=== PATIENT | male | born 1985 | race Caucasian/White ===

== ENCOUNTER 2018-01-11 12:57 | Inpatient (IN) | payer OTHER ==
[2018-01-11] MEDS: traMADol 50 MG TAB PO PRN (15:15)
[2018-01-11] MEDS ORDERED: BISACODYL 10 MG SUPP PR PRN (15:43)
[2018-01-11] MEDS ORDERED: PNEUMOCOCCAL 0.5ML VACCINE VIAL IM ONE (16:35)
--- NOTE | 2018-01-11 17:29 | GHP ---
POSTADMISSION PHYSICIAN EVALUATION AND REHABILITATION TREATMENT PLAN DATE OF ADMISSION: 01/11/2018 DATE OF EVALUATION: 01/11/2018. TIME OF EVALUATION: 1520. REFERRING FACILITY: [facility]. IMPAIRMENT GROUP: 8.3. DATE OF ONSET: 12/21/2017. REFERRING PHYSICIAN: Dr. Brooks. CONSULTING PHYSICIANS: He was seen by the pulmonary and critical care team, and the orthopedic spine service. REHABLITATION DIAGNOSIS: Debility status post pelvic fractures and open reduction, internal fixation. ETIOLOGIC DIAGNOSIS: Pelvic fracture. DATE OF SURGERY: 12/29/2017. HISTORY OF PRESENT ILLNESS: This patient is a 32-year-old man who was brought to [facility] due to mental status changes. He reports he was found unconscious on his couch by his roommates. A day or two previously he reports that he had been running to catch a bus and tripped and fell and developed pain in his left hip and elsewhere on his left side. He was, however , able to go home and he went to work the next day. He had a subsequent fall at home. He had been drinking heavily and he is habitually a heavy drinker. He was hospitalized and treated for alcohol withdrawal with withdrawal seizures , delirium and encephalopathy on 12/21/2017. Several days later on 12/25/2017, bruising was noted on the left hip. An x-ray was done which showed a complex left acetabular fracture. He was transferred to [facility] on . En route to [facility], he vomited and aspirated. He had respiratory failure and required intubation. He had septic shock. Once he was medically stable, he underwent ORIF of the left acetabulum and sacroiliac screw on 12/29/2017. He subsequently had ORIF of the left acetabular fracture on , and a lumbopelvic fixation done on 01/04/2018. He was also found to have an L5 compression fracture. He had constipation and possible ileus versus small bowel obstruction, which eventually resolved with laxatives. Once he had loose stools, he was tested for Clostridium difficile colitis and was negative for that. Other hospital complications included, acute kidney injury, anemia, hyponatremia, hypokalemia, and sinus tachycardia. He was stabilized from an orthopedic point of view and medically stabilized, participating in therapies and ready for inpatient rehabilitation. LABORATORY DATA: Most recently on 01/10/2018: CBC showed anemia with a hemoglobin of 7.6 and hematocrit of 24.7. There was a very high platelet count at 818, and on 01/10/2018, a basic metabolic profile was overall within normal limits. The previous day liver function tests showed an elevated alkaline phosphatase at 337. Otherwise it was normal with no transaminase elevations and normal bilirubin. Magnesium was normal at 1.7, phosphorus was normal at 3.0. TSH on 12/21/2017, was normal at 1.13. He had an ultrasound study on to rule out DVTs bilaterally to the lower extremities, and these were negative. There was an echocardiogram done on 12/29/2017, which showed normal right and left ventricular size, thickness and function. Ejection fraction was estimated at 60%-65%. There were no valvular abnormalities. Right ventricular systolic pressure was somewhat elevated at 29 mmHg. PRECAUTIONS: He is a fall risk. He has orthopedic weightbearing precautions, nonweightbearing on the left lower extremity, full weightbearing on the right lower extremity, but flat foot, no heel strike and no toe off. ACTIVE COMORBIDITIES: He has no active tier 1, tier 2, or tier 3 comorbidities. PAST MEDICAL HISTORY: 1. Alcohol abuse and dependence. 2. Tobacco dependence syndrome. PAST SURGICAL HISTORY: He has not had previous surgeries. PREHOSPITAL MEDICATIONS: He was not taking any medications. ADMISSION MEDICATIONS: 1. Acetaminophen 650 mg p.o. q.4 hours p.r.n. 2. Aspirin 81 mg p.o. daily for thrombocytosis. 3. Enoxaparin 30 mg subcutaneous twice daily. 4. Methocarbamol 750 mg p.o. q.8 hours p.r.n. 5. Metoprolol 12.5 mg p.o. twice daily. 6. Nicotine patch 7 mg daily. 7. Oxycodone 5 mg p.o. q.4 hours p.r.n. 8. Polyethylene glycol 17 g p.o. daily. 9. Senna/docusate 1 p.o. twice daily. 10. Tramadol 50 mg p.o. q.6 hours p.r.n. ALLERGIES: No known drug allergies. SOCIAL HISTORY: He lives with 2 roommates. 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 He is a smoker and has been a heavy alcohol user. He reports his father lives out of town, but came to [place] to help out while the patient is ill. He is not sure that his father is going to stay. He also reports that bedrooms and bathrooms are up a flight of steps in his apartment and he is not sure he is going to return to that same location. FAMILY HISTORY: Noncontributory. REVIEW OF SYSTEMS: He reports considerable pain in his left side and at his incisions. He reports weakness in the left leg, particularly in hip flexion, and cannot lift the leg off the bed. He is not limited by pain. His bowels have been moving. He has a normal appetite. He denies fevers, chills, cough or dyspnea. He says he gets "charley horses" in his calves, which are relieved with methocarbamol, and he feels that the combination of acetaminophen, oxycodone, and methocarbamol has been effective for pain control. Otherwise, a 10-point review of systems is negative. PHYSICAL EXAMINATION: VITAL SIGNS: Vitals are not yet available in the chart. GENERAL: This is a well-nourished, well-developed man, in hospital scrubs and a hospital gown with a very long cordero, cooperative and in no acute distress. HEENT: Extraocular movements are intact. Pupils are equal, round, reactive to light. Mucous membranes are moist. Dentition is in good condition. He has a mildly crowded airway, Mallampati class 2. NECK: Supple. HEART: Regular rate and rhythm. He is mildly tachycardic. There are no murmurs, rubs, or gallops. LUNGS: Clear to auscultation bilaterally. ABDOMEN : Soft, nontender, nondistended with normoactive bowel sounds and no hepatosplenomegaly. EXTREMITIES: No cyanosis or clubbing. There is 1+ edema on the left pretibial, and trace edema on the right pretibial. He has mild calf tenderness bilaterally, greater on the left than the right. NEUROLOGIC: Alert and oriented x3. Cranial nerves 2-12 are grossly intact. He has less than antigravity strength at the left hip flexor. Left quadriceps is 5/5, left foot plantar and dorsiflexion are 5/5, left hamstring is 4/5. Strength is normal on the right. Sensation is intact to light touch, though he reports paresthesias bilaterally in his toes. SKIN: Incisions were inspected in the anterior pelvis and left hip, they have shaji present. There is very mild erythema and slight serous drainage at the right side of the pelvic incision and the hip incision was clean, dry and intact. CURRENT LEVEL OF FUNCTION: Per the preadmission screen, he was on a regular diet. Regarding dressing, he was dependent to don his socks. Toilet transfer was done with contact guard assist and he was dependent for clothing management. Regarding bowels, he had loose stools, which resolved. Bed mobility required contact guard to moderate assist for log-rolling and moderate assist for lower extremities by a swivel technique with voice cues to ensure compliance. Transferring [id number] was done with moderate assist and voice cues for hand placement. Balance required contact guard for sitting. Endurance was good. He was able to ambulate 7 feet and 5 feet with contact guard assist and front-wheeled walker. He fatigued easily and was noted to be tremulous. Communication was considered normal. Regarding cognition, he was noted to have periods of confusion, anxiety and impulsivity. He required assistance to identify cognitive errors. He was able to recall 2/3 spinal precautions. On today's exam, he appears to have improved in terms of bed mobility and was able to arise to seated without any assistance. Otherwise, there were no significant differences from the pre-admission screen. IMPRESSION: This is a 32-year-old man who had a fall and suffered a complex left acetabular fracture and sacral fractures, as well as an L5 compression fracture. Diagnosis was delayed due to delirium consistent with alcohol withdrawal. He was transferred from [facility] where he was initially hospitalized to [facility] for definitive surgery. He underwent open reduction, internal fixation of the left acetabulum and sacral screws. He had a subsequent surgery in which he had lumbopelvic fixation. Hospital course was complicated by continued delirium and by an ileus , likely due to pain medications, which eventually remitted; with diarrhea, which was negative for Clostridium difficile; acute kidney injury, anemia, hyponatremia, hypokalemia, and sinus tachycardia. He had deep vein thrombosis ruled out with bilateral lower extremity ultrasounds on 01/06/2018. He is appropriate for inpatient rehabilitation where he will benefit from physical therapy and occupational therapy to optimize his mobility and activities of daily living with the restriction of nonweightbearing on the left lower extremity and full weightbearing, but no heel strike or toe off on the right lower extremity. He has needs for pain control. He will have repeat laboratory testing regarding thrombocytopenia and renal and hepatic function. His goal is to complete a rehabilitation stay and then return home with home care versus outpatient services. For a safe discharge he will need to achieve independence with grooming and bed mobility, modified independence for slide board versus stand pivot transfer on the right lower extremity, will need to be able to propel and manage a wheelchair, and will need to be able to ambulate for household distances with crutches and negotiate 4 or more steps safely. He will need to be able to bathe and dress himself with modified independence. He will need to be able to maintain all precautions during functional tasks and follow multiple commands safely. He will have therapy with Physical Therapy, Occupational Therapy, and Speech and Language Pathology for 60 minutes each day for each discipline on 5-7 days of the week. His expected duration of stay is 5-7 days. It is anticipated that upon discharge he will continue to benefit from home health services, including occupational therapy and physical therapy. PLAN: 1. Debility with nonweightbearing status on the left lower extremity and flatfoot weightbearing on the right lower extremity, status post pelvic fractures and multiple surgeries on 12/29/2017, 01/02/2018 and 01/04/2018. PT and OT to optimize his mobility and activities of daily living towards the independent to modified independent level. 2. Hospital delirium, and alcohol withdrawal. Will have assessment per Speech and Language Pathology regarding cognition. 3. Pain management. Will increase the frequency of oxycodone from 5 to 10 mg q.4 hours p.r.n. to q.3 hours p.r.n. Will schedule acetaminophen at 1000 mg q.8 hours. Continue methocarbamol and tramadol as ordered. 4. History of alcohol abuse and dependence, and alcohol withdrawal. Will repeat a liver panel in the morning to ensure that he has normal liver functions and will be able to safely take acetaminophen. He has no signs or symptoms consistent with alcoholic cirrhosis. 5. Anemia and thrombocytosis. Check CBC in the morning. 6. Tobacco dependence syndrome. Continue nicotine patch. Will discuss discontinuation depending on his level of craving for tobacco. 7. Alcohol abuse and dependence. He will be counseled and any appropriate referrals will be made upon discharge. 8. Possible osteoporosis with a ground level fall causing significant fractures. We will check a vitamin D level. Advise followup after discharge with Primary Care versus Endocrinology for bone density scanning and any treatment which might be indicated. 9. Tachycardia is likely multifactorial. Continue metoprolol. Anticipate that tachycardia will improve, especially as his anemia resolves. 10. Thrombocytosis. Continue aspirin as long as he has a markedly elevated platelet count. 11. Prophylaxis. He is at elevated risk for DVT. Continue enoxaparin as ordered out of the hospital at 30 mg subcutaneous twice daily. Given that he is simultaneously on aspirin, I will also initiate proton pump inhibitor for GI protection. 12. Constipation due to opiates. Continue laxatives as ordered out of the hospital. /[id number]/MODL MTDD
[2018-01-11] MEDS: METHOCARBAMOL 750 MG TAB PO PRN (17:58)
[2018-01-11] MEDS: oxyCODONE IR 5 MG TAB PO PRN ×2 (17:58→21:01)
[2018-01-11] MEDS: SENNOSIDES/DOCUSATE SODIUM TAB PO SCH (20:53)
[2018-01-11] MEDS: ENOXAPARIN 30 MG/0.3 ML SYR SC SCH (20:53)
[2018-01-11] MEDS: ACETAMINOPHEN 500 MG TAB PO SCH (20:54)
[2018-01-11] MEDS: METOPROLOL TARTRATE 25 MG TAB PO SCH (20:55)
[2018-01-12] MEDS: oxyCODONE IR 5 MG TAB PO PRN ×5 (00:34→18:48)
[2018-01-12] MEDS: ACETAMINOPHEN 500 MG TAB PO SCH ×3 (05:30→21:29)
[2018-01-12] MEDS: traMADol 50 MG TAB PO PRN (06:56)
[2018-01-12 08:06] LABS: PLATELET COUNT 833 10^3/uL (150-400)
[2018-01-12] MEDS: METOPROLOL TARTRATE 25 MG TAB PO SCH ×2 (08:39→20:18)
[2018-01-12] MEDS: POLYETHYLENE GLYCOL 3350 17 GM PKT PO SCH (08:39)
[2018-01-12] MEDS: PANTOPRAZOLE SODIUM 40 MG TAB PO SCH (08:39)
[2018-01-12] MEDS: ASPIRIN EC 81 MG TAB PO SCH (08:39)
[2018-01-12] MEDS: SENNOSIDES/DOCUSATE SODIUM TAB PO SCH ×2 (08:40→20:21)
[2018-01-12] MEDS: NICOTINE 7 MG/24 HR PATCH TD SCH (08:40)
[2018-01-12] MEDS: ENOXAPARIN 30 MG/0.3 ML SYR SC SCH ×2 (08:41→20:18)
[2018-01-12] MEDS ORDERED: CHOLECALCIFEROL VIT D3 50,000 UNIT CAP PO ONE (09:33)
--- NOTE | 2018-01-12 09:49 | SOAPPROG ---
SOAP Progress Note Assessment/Plan: Assessment: Debility with nonweightbearing status on the left lower extremity and flatfoot weightbearing on the right lower extremity, status post pelvic fractures and multiple surgeries on 12/29/2017, 01/02/2018 and 01/04/2018. PT and OT to optimize his mobility and activities of daily living towards the independent to modified independent level. Hospital delirium, and alcohol withdrawal. Will have assessment per Speech and Language Pathology regarding cognition. Pain management. Continue oxycodone 5 to 10 mg q.3 hours p.r.n. and acetaminophen at 1000 mg scheduled q.8 hours. Continue methocarbamol and tramadol as ordered. * Add morphine SR 15 mg at bedtime starting 01/22/2018 for better pain control overnight. Fluid collection under pelvic incision, and likely cellulitis along incision. * Send for ultrasound drainage and culture 01/12/2018. * Plan to start cephalexin after fluid is drained. Anemia improving on CBC 01/12/2018. Thrombocytosis, likely reactive, with elevated inflammatory markers including ferritin, ESR and CRP. * Continue aspirin as long as he has a markedly elevated platelet count. Constipation due to opiates. Continue laxatives as ordered out of the hospital. Tobacco dependence syndrome. Continue nicotine patch. Will discuss discontinuation depending on his level of craving for tobacco. Possible osteoporosis with a ground level fall causing significant fractures. * Low vitamin-D level. Initiating vitamin-D replacement, 01/12/2018. * Advise followup after discharge with Primary Care versus Endocrinology for bone density scanning and any treatment which might be indicated. Tachycardia is likely multifactorial. Continue metoprolol. Anticipate that tachycardia will improve, especially as his anemia resolves. History of alcohol abuse and dependence, and alcohol withdrawal. Bilirubin and transaminases are normal. Alkaline phosphatase is elevated consistent with multiple fractures. Albumin is slightly low. No indication of cirrhosis or chronic liver disease. Prophylaxis. He is at elevated risk for DVT. Continue enoxaparin as ordered out of the hospital at 30 mg subcutaneous twice daily. Given that he is simultaneously on aspirin, I will also initiate proton pump inhibitor for GI protection. 01/12/18 11:36 Subjective: Sleep was interrupted by pain and he used oxycodone approximately every 3-4 hours overnight. Denies fevers or chills, cough or dyspnea. Has discomfort which he thinks is due to shaji at his left hip incision. Bowels have moved. Objective: Vital Signs Temp Pulse Resp BP Pulse Ox 36.5 C 111 H 15 107/85 H 98 01/12/18 06:15 01/12/18 08:39 01/12/18 06:15 01/12/18 08:39 01/12/18 06:15 Laboratory Results 01/12/18 06:00 01/12/18 06:00 01/11/18 01/12/18 01/13/18 05:59 05:59 05:59 Intake Total 1680 450 Output Total 2950 Balance -1270 450 Physical Exam - Physical Exam General Appearance: WD/WN, alert, no apparent distress Respiratory: No respiratory distress, No accessory muscle use Cardiac/Chest: edema (Left lower extremity 2+ over martin, 2 to 3+ over foot.) Abdomen: other (Swollen area under pelvic incision approximately 10 x 15 cm, soft, fluctuant, mildly tender.) Skin: other (Erythema along pelvic incision, and mild over left hip incision.) Neuro/Psych: no motor/sensory deficits, alert, normal mood/affect, oriented x 3 ICD10 Worksheet Patient Problems: Problems Problem Status Onset Pelvic fracture Acute S/P ORIF (open reduction internal fixation) fracture Acute
[2018-01-12] MEDS ORDERED: LIDOCAINE 1% 300 MG/30 ML SDV ONE (14:04)
[2018-01-12] MEDS: CEPHALEXIN 500 MG CAP PO SCH ×2 (17:20→23:11)
[2018-01-12] MEDS: morphINE SR 15 MG TAB PO SCH (21:29)
[2018-01-13] MEDS: oxyCODONE IR 5 MG TAB PO PRN ×4 (00:04→19:38)
[2018-01-13] MEDS: traMADol 50 MG TAB PO PRN ×3 (06:05→23:09)
[2018-01-13] MEDS: ACETAMINOPHEN 500 MG TAB PO SCH ×3 (06:05→21:07)
[2018-01-13] MEDS: CEPHALEXIN 500 MG CAP PO SCH ×4 (06:05→23:10)
[2018-01-13] MEDS: ASPIRIN EC 81 MG TAB PO SCH (08:35)
[2018-01-13] MEDS: CHOLECALCIFEROL VIT D3 2,000 UNITS TAB/CAP PO SCH (08:39)
[2018-01-13] MEDS: METOPROLOL TARTRATE 25 MG TAB PO SCH ×2 (08:40→21:06)
[2018-01-13] MEDS: NICOTINE 7 MG/24 HR PATCH TD SCH (08:40)
[2018-01-13] MEDS: PANTOPRAZOLE SODIUM 40 MG TAB PO SCH (08:41)
[2018-01-13] MEDS: SENNOSIDES/DOCUSATE SODIUM TAB PO SCH ×2 (08:41→21:06)
[2018-01-13] MEDS: POLYETHYLENE GLYCOL 3350 17 GM PKT PO SCH (08:41)
[2018-01-13] MEDS: ENOXAPARIN 30 MG/0.3 ML SYR SC SCH (09:40)
[2018-01-13] MEDS ORDERED: ERGOCALCIFEROL 50,000 I.UNIT CAP PO ONE (12:00)
[2018-01-13] MEDS: DOXYCYCLINE HYCLATE 100 MG CAP/TAB PO SCH ×2 (12:35→21:05)
--- NOTE | 2018-01-13 13:35 | HOSPPROG ---
Hospitalist Progress Note Assessment/Plan: Debility with nonweightbearing status on the left lower extremity and flatfoot weightbearing on the right lower extremity, status post pelvic fractures and multiple surgeries on 12/29/2017, 01/02/2018 and 01/04/2018. PT and OT to optimize his mobility and activities of daily living towards the independent to modified independent level. Hospital delirium, and alcohol withdrawal. Will have assessment per Speech and Language Pathology regarding cognition. Pain management. Continue oxycodone 5 to 10 mg q.3 hours p.r.n. and acetaminophen at 1000 mg scheduled q.8 hours. Continue methocarbamol and tramadol as ordered. * Add morphine SR 15 mg at bedtime starting 01/22/2018 for better pain control overnight. Fluid collection under pelvic incision, and likely cellulitis along incision. * Send for ultrasound drainage and culture 01/12/2018. * Fast re-accumulation - discussed with IR - will get another drainage +/- pigtail drain on Monday - possibly hematoma - will decrease dose of lovenox and hold aspirin Anemia improving on CBC 01/12/2018. Thrombocytosis, likely reactive, with elevated inflammatory markers including ferritin, ESR and CRP. * hold aspirin for now Constipation due to opiates. Continue laxatives as ordered out of the hospital. Tobacco dependence syndrome. Continue nicotine patch. Will discuss discontinuation depending on his level of craving for tobacco. Possible osteoporosis with a ground level fall causing significant fractures. * Low vitamin-D level. Initiating vitamin-D replacement, 01/12/2018. * Advise followup after discharge with Primary Care versus Endocrinology for bone density scanning and any treatment which might be indicated. Tachycardia is likely multifactorial. Continue metoprolol. Anticipate that tachycardia will improve, especially as his anemia resolves. History of alcohol abuse and dependence, and alcohol withdrawal. Bilirubin and transaminases are normal. Alkaline phosphatase is elevated consistent with multiple fractures. Albumin is slightly low. No indication of cirrhosis or chronic liver disease. Prophylaxis. He is at elevated risk for DVT. - will decrease dose to 40 mg daily for next few days since there may be blood in fluid collection. Subjective: increasing re-accumulation of fluid over pubic bone. increased redness at incision Objective: Vital Signs Temp Pulse Resp BP Pulse Ox 36.6 C 123 H 18 117/76 100 01/13/18 06:16 01/13/18 08:40 01/13/18 06:16 01/13/18 08:40 01/13/18 08:00 Microbiology 01/12/18 15:30 Gram Stain - Final Synovial Fluid - Aspirate 01/12/18 15:30 Gram Stain - Final Synovial Fluid - Aspirate Laboratory Results 01/12/18 06:00 01/12/18 06:00 01/12/18 01/13/18 01/14/18 05:59 05:59 05:59 Intake Total 1680 3905 950 Output Total 2950 3000 950 Balance -1270 905 0 - Physical Exam Constitutional: no apparent distress, appears nourished, not in pain Eyes: anicteric sclera, EOMI Ears, Nose, Mouth, Throat: moist mucous membranes Cardiovascular: regular rate and rhythym, no murmur, rub, or gallop Respiratory: no respiratory distress, no rales or rhonchi, clear to auscultation Gastrointestinal: other (fluid collection over pubic bone. incision with erythema. no drainage) Skin: warm Neurologic: AAOx3 Psychiatric: interacting appropriately, not anxious, not encephalopathic, thought process linear ICD10 Worksheet Patient Problems: Problems Problem Status Onset Pelvic fracture Acute S/P ORIF (open reduction internal fixation) fracture Acute
[2018-01-13] MEDS: AQUAPHOR OINTMENT 3.5 OZ JAR TP SCH ×2 (19:16→21:30)
[2018-01-13] MEDS: BACITRACIN OINTMENT 1 PACKET TP SCH (19:19)
[2018-01-13] MEDS: morphINE SR 15 MG TAB PO SCH (21:05)
[2018-01-14] MEDS: ACETAMINOPHEN 500 MG TAB PO SCH ×3 (05:31→20:24)
[2018-01-14] MEDS: CEPHALEXIN 500 MG CAP PO SCH (05:31)
[2018-01-14] MEDS: BACITRACIN OINTMENT 1 PACKET TP SCH ×2 (08:31→20:25)
[2018-01-14] MEDS: DOXYCYCLINE HYCLATE 100 MG CAP/TAB PO SCH ×2 (08:37→20:26)
[2018-01-14] MEDS: METOPROLOL TARTRATE 25 MG TAB PO SCH ×2 (08:37→20:26)
[2018-01-14] MEDS: CHOLECALCIFEROL VIT D3 2,000 UNITS TAB/CAP PO SCH (08:37)
[2018-01-14] MEDS: NICOTINE 7 MG/24 HR PATCH TD SCH (08:38)
[2018-01-14] MEDS: PANTOPRAZOLE SODIUM 40 MG TAB PO SCH (08:38)
[2018-01-14] MEDS: traMADol 50 MG TAB PO PRN ×3 (08:43→20:27)
[2018-01-14] MEDS ORDERED: ENOXAPARIN 40 MG/0.4 ML SYR SC SCH (09:00)
[2018-01-14] MEDS: POLYETHYLENE GLYCOL 3350 17 GM PKT PO SCH (10:07)
[2018-01-14] MEDS: SENNOSIDES/DOCUSATE SODIUM TAB PO SCH ×2 (10:07→20:24)
--- NOTE | 2018-01-14 11:05 | HOSPPROG ---
Hospitalist Progress Note Assessment/Plan: Debility with nonweightbearing status on the left lower extremity and flatfoot weightbearing on the right lower extremity, status post pelvic fractures and multiple surgeries on 12/29/2017, 01/02/2018 and 01/04/2018. PT and OT to optimize his mobility and activities of daily living towards the independent to modified independent level. Hospital delirium, and alcohol withdrawal. Will have assessment per Speech and Language Pathology regarding cognition. Pain management. Continue oxycodone 5 to 10 mg q.3 hours p.r.n. and acetaminophen at 1000 mg scheduled q.8 hours. Continue methocarbamol and tramadol as ordered. * Add morphine SR 15 mg at bedtime starting 01/22/2018 for better pain control overnight. Fluid collection under pelvic incision, and likely cellulitis along incision. * Send for ultrasound drainage and culture 01/12/2018. * Fast re-accumulation - discussed with IR - will get another drainage +/- pigtail drain on Monday - possibly hematoma - will decrease dose of lovenox and hold aspirin * 01/14 - fluid collection seems better. will wait for Dr. Gomes to evaluate tomorrow before ordering IR drainage Incisional cellulitis * some worsening of erythema. Will change keflex to IV ancef and cont po doxycline. * labs ordered for tomorrow Anemia improving on CBC 01/12/2018. Thrombocytosis, likely reactive, with elevated inflammatory markers including ferritin, ESR and CRP. * hold aspirin for now Constipation due to opiates. Continue laxatives as ordered out of the hospital. Tobacco dependence syndrome. Continue nicotine patch. Will discuss discontinuation depending on his level of craving for tobacco. Possible osteoporosis with a ground level fall causing significant fractures. * Low vitamin-D level. Initiating vitamin-D replacement, 01/12/2018. * Advise followup after discharge with Primary Care versus Endocrinology for bone density scanning and any treatment which might be indicated. Tachycardia is likely multifactorial. Continue metoprolol. Anticipate that tachycardia will improve, especially as his anemia resolves. History of alcohol abuse and dependence, and alcohol withdrawal. Bilirubin and transaminases are normal. Alkaline phosphatase is elevated consistent with multiple fractures. Albumin is slightly low. No indication of cirrhosis or chronic liver disease. Prophylaxis. He is at elevated risk for DVT. - will decrease dose to 40 mg daily for next few days since there may be blood in fluid collection. Subjective: pain in pubic incision about the same. there is some serosanguinous drainage Objective: Vital Signs Temp Pulse Resp BP Pulse Ox 36.4 C 134 H 18 121/87 H 96 01/14/18 05:40 01/14/18 08:37 01/14/18 05:40 01/14/18 08:37 01/14/18 05:40 Microbiology 01/12/18 15:30 Gram Stain - Final Synovial Fluid - Aspirate 01/12/18 15:30 Gram Stain - Final Synovial Fluid - Aspirate Laboratory Results 01/12/18 06:00 01/12/18 06:00 01/13/18 01/14/18 01/15/18 05:59 05:59 05:59 Intake Total 3905 3932 1710 Output Total 3000 3675 Balance 224 240 1591 - Physical Exam Constitutional: no apparent distress, appears nourished, not in pain Eyes: anicteric sclera, EOMI Ears, Nose, Mouth, Throat: moist mucous membranes, hearing normal Cardiovascular: regular rate and rhythym Respiratory: no respiratory distress Skin: other (pubic incision with slightly increased erythema. fluid collection seems a little better) Neurologic: AAOx3 Psychiatric: interacting appropriately, not anxious, not encephalopathic, thought process linear ICD10 Worksheet Patient Problems: Problems Problem Status Onset Pelvic fracture Acute S/P ORIF (open reduction internal fixation) fracture Acute
[2018-01-14] MEDS: oxyCODONE IR 5 MG TAB PO PRN ×2 (11:25→17:30)
[2018-01-14] MEDS: AQUAPHOR OINTMENT 3.5 OZ JAR TP SCH ×2 (14:07→20:26)
[2018-01-14] MEDS: ENOXAPARIN 40 MG/0.4 ML SYR SC SCH (15:13)
[2018-01-14] MEDS: morphINE SR 15 MG TAB PO SCH (20:26)
[2018-01-14] MEDS: METHOCARBAMOL 750 MG TAB PO PRN (20:27)
[2018-01-15] MEDS: traMADol 50 MG TAB PO PRN ×3 (05:07→17:23)
[2018-01-15] MEDS: ACETAMINOPHEN 500 MG TAB PO SCH ×3 (05:07→21:55)
[2018-01-15] MEDS: PANTOPRAZOLE SODIUM 40 MG TAB PO SCH (08:44)
[2018-01-15] MEDS: SENNOSIDES/DOCUSATE SODIUM TAB PO SCH ×2 (08:44→17:49)
[2018-01-15] MEDS: CHOLECALCIFEROL VIT D3 2,000 UNITS TAB/CAP PO SCH (08:44)
[2018-01-15] MEDS: DOXYCYCLINE HYCLATE 100 MG CAP/TAB PO SCH ×2 (08:45→20:05)
[2018-01-15] MEDS: ENOXAPARIN 40 MG/0.4 ML SYR SC SCH (08:45)
[2018-01-15] MEDS: NICOTINE 7 MG/24 HR PATCH TD SCH (08:45)
[2018-01-15] MEDS: METOPROLOL TARTRATE 25 MG TAB PO SCH ×2 (08:45→20:04)
[2018-01-15] MEDS: BACITRACIN OINTMENT 1 PACKET TP SCH ×2 (08:47→20:05)
[2018-01-15] MEDS: METHOCARBAMOL 750 MG TAB PO PRN (08:47)
[2018-01-15] MEDS: AQUAPHOR OINTMENT 3.5 OZ JAR TP SCH ×3 (09:01→20:22)
[2018-01-15] MEDS: POLYETHYLENE GLYCOL 3350 17 GM PKT PO SCH (09:01)
[2018-01-15 12:54] LABS: PLATELET COUNT 890 10^3/uL (150-400)
--- NOTE | 2018-01-15 13:11 | SOAPPROG ---
SOAP Progress Note Assessment/Plan: Assessment: Debility with nonweightbearing status on the left lower extremity and flatfoot weightbearing on the right lower extremity, status post pelvic fractures and multiple surgeries on 12/29/2017, 01/02/2018 and 01/04/2018. * Initial functional independence measure 90 on 01/15/2018. Independent with bed mobility. Transfers with standby assist. Ambulates 40 ft with a front wheeled walker and standby assist. Right foot pain limits walking. Needs occasional cues for spinal precautions. * Continue PT and OT to optimize his mobility and activities of daily living towards the independent to modified independent level. Hospital delirium, and alcohol withdrawal. * Noted to have mild impairment to executive function, higher level attention, speed of processing, and higher level problem solving and reasoning. * Continue Speech and Language Pathology. Pain management. Continue oxycodone 5 to 10 mg q.3 hours p.r.n. and acetaminophen at 1000 mg scheduled q.8 hours. Continue methocarbamol and tramadol as ordered. * Add morphine SR 15 mg at bedtime starting 01/22/2018 for better pain control overnight. * Using more frequent tramadol at 50 mg q.6 hours p.r.n., and less oxycodone. Fluid collection under pelvic incision, and likely cellulitis along incision. * Send for ultrasound drainage and culture 01/12/2018. * Culture negative at 48 hr. * Cellulitis appeared worse and weekend coverage physician changed from cephalexin to cephazolin, and added doxycycline. Looking better today. * Fluid collection appears recurrent. Will arrange IR drainage and placement of drain 01/15/2018. Then will be able to discontinue shaji without risk for dehiscence due to pressure. Anemia improving on CBC 01/12/2018. Continues to improve on CBC 01/15/2018. Thrombocytosis, likely reactive, with elevated inflammatory markers including ferritin, ESR and CRP. * Still with elevated platelets on 01/15/2018. * Continue aspirin as long as he has a markedly elevated platelet count. Constipation due to opiates. Continue laxatives as ordered out of the hospital. Tobacco dependence syndrome. Continue nicotine patch. Will discuss discontinuation depending on his level of craving for tobacco. Possible osteoporosis with a ground level fall causing significant fractures. * Low vitamin-D level. Initiating vitamin-D replacement, 01/12/2018. * Advise followup after discharge with Primary Care versus Endocrinology for bone density scanning and any treatment which might be indicated. Tachycardia is likely multifactorial. Continue metoprolol. Anticipate that tachycardia will improve, especially as his anemia resolves. History of alcohol abuse and dependence, and alcohol withdrawal. Bilirubin and transaminases are normal. Alkaline phosphatase is elevated consistent with multiple fractures. Albumin is slightly low. No indication of cirrhosis or chronic liver disease. * coding compliance manager discussing discharge to inpatient substance abuse treatment facility when he completes his stay at inpatient rehabilitation. He will need to be off opiates prior to such a transfer. Prophylaxis. He is at elevated risk for DVT. Continue enoxaparin as ordered out of the hospital at 30 mg subcutaneous twice daily. Given that he is simultaneously on aspirin, I will also initiate proton pump inhibitor for GI protection. DISPOSITION: Attended staffing, 15 min. Discussed with pillowcase sewer, nursing, PT, OT, TARIFF PUBLISHING AGENT. He will not be returning to the apartment which she shared with 2 roommates. He may be able to arrange another roommate situation. He intends to return to work. Considering an extended stay hotel which would be [employer] and his father may help pay for it. Considering discharge to inpatient substance abuse treatment facility. Discharge date set for 01/22/2018. 01/15/18 13:02 Subjective: Has pain on the bottom of his right foot. It is worse with moving the foot and especially with weight-bearing, especially when he 1st arises in the morning. It does not hurt at rest. He slept about 6 hr last night. He says that thinking about things is interfering with attaining sleep. Once he is asleep he sleeps well. Objective: Vital Signs Temp Pulse Resp BP Pulse Ox 36.6 C 97 16 118/86 H 94 01/15/18 06:40 01/15/18 06:40 01/15/18 06:40 01/15/18 06:40 01/15/18 06:40 Microbiology 01/12/18 15:30 Gram Stain - Final Synovial Fluid - Aspirate 01/12/18 15:30 Gram Stain - Final Synovial Fluid - Aspirate Laboratory Results 01/15/18 11:10 01/14/18 01/15/18 01/16/18 05:59 05:59 05:59 Intake Total 3932 5305 600 Output Total 3675 3450 300 Balance 257 1855 300 - Time Spent With Patient Time Spent With Patient: Greater than 35 min floor time today, including more than 50% of time in coordination of care during staffing meeting and counseling patient and father. Physical Exam - Physical Exam General Appearance: WD/WN, alert, no apparent distress Respiratory: No respiratory distress, No accessory muscle use Cardiac/Chest: No edema Abdomen: other (Swelling under pelvic incision consistent with recurrent fluid collection.) Skin: other (Minimal erythema around shaji and especially right end of pelvic incision.) Neuro/Psych: no motor/sensory deficits, alert, normal mood/affect, oriented x 3 ICD10 Worksheet Patient Problems: Problems Problem Status Onset Pelvic fracture Acute S/P ORIF (open reduction internal fixation) fracture Acute
[2018-01-15] MEDS: oxyCODONE IR 5 MG TAB PO PRN ×2 (14:16→21:57)
[2018-01-15] MEDS: morphINE SR 15 MG TAB PO SCH (20:05)
[2018-01-16] MEDS: ACETAMINOPHEN 500 MG TAB PO SCH ×3 (06:03→22:11)
[2018-01-16] MEDS: traMADol 50 MG TAB PO PRN ×2 (06:04→14:05)
[2018-01-16] MEDS: PANTOPRAZOLE SODIUM 40 MG TAB PO SCH (08:27)
[2018-01-16] MEDS: ENOXAPARIN 40 MG/0.4 ML SYR SC SCH (08:27)
[2018-01-16] MEDS: DOXYCYCLINE HYCLATE 100 MG CAP/TAB PO SCH ×2 (08:27→20:58)
[2018-01-16] MEDS: METOPROLOL TARTRATE 25 MG TAB PO SCH ×2 (08:28→20:58)
[2018-01-16] MEDS: CHOLECALCIFEROL VIT D3 2,000 UNITS TAB/CAP PO SCH (08:28)
[2018-01-16] MEDS: NICOTINE 7 MG/24 HR PATCH TD SCH (08:28)
[2018-01-16] MEDS: AQUAPHOR OINTMENT 3.5 OZ JAR TP SCH ×2 (10:47→21:12)
[2018-01-16] MEDS: SENNOSIDES/DOCUSATE SODIUM TAB PO SCH ×2 (10:48→21:02)
[2018-01-16] MEDS: POLYETHYLENE GLYCOL 3350 17 GM PKT PO SCH (10:48)
[2018-01-16] MEDS: BACITRACIN OINTMENT 1 PACKET TP SCH ×2 (10:49→20:58)
[2018-01-16] MEDS ORDERED: LIDOCAINE 1% 300 MG/30 ML SDV ONE (10:52)
[2018-01-16] MEDS ORDERED: fentaNYL 100 MCG/2 ML INJ ONE ×2 (11:00→11:50)
[2018-01-16] MEDS ORDERED: IOPAMIDOL (ISOVUE 370) 100 ML BTL IV ONE (11:01)
[2018-01-16] MEDS: METHOCARBAMOL 750 MG TAB PO PRN (14:05)
--- NOTE | 2018-01-16 14:51 | SOAPPROG ---
SOAP Progress Note Assessment/Plan: Assessment: Debility with nonweightbearing status on the left lower extremity and flatfoot weightbearing on the right lower extremity, status post pelvic fractures and multiple surgeries on 12/29/2017, 01/02/2018 and 01/04/2018. * Initial functional independence measure 90 on 01/15/2018. Independent with bed mobility. Transfers with standby assist. Ambulates 40 ft with a front wheeled walker and standby assist. Right foot pain limits walking. Needs occasional cues for spinal precautions. * Continue PT and OT to optimize his mobility and activities of daily living towards the independent to modified independent level. Hospital delirium, and alcohol withdrawal. * Noted to have mild impairment to executive function, higher level attention, speed of processing, and higher level problem solving and reasoning. * Continue Speech and Language Pathology. Pain management. Continue oxycodone 5 to 10 mg q.3 hours p.r.n. and acetaminophen at 1000 mg scheduled q.8 hours. Continue methocarbamol and tramadol as ordered. * Add morphine SR 15 mg at bedtime starting 01/22/2018 for better pain control overnight. * Using more frequent tramadol at 50 mg q.6 hours p.r.n., and less oxycodone. Fluid collection under pelvic incision, and likely cellulitis along incision. * Send for ultrasound drainage and culture 01/12/2018. * Drained again and drains placed 01/16/2018. Nurse reported has already emptied 50 cc from 1 drain and 60 cc from the other drain, not more than 1-2 hours after drains were placed. Continue to monitor fluid output. Expect output to decrease over a period of days. Possible cellulitis along pelvic incision versus inflammatory response to shaji. * Still erythematous on exam 01/16/2018. CBC 01/15/2018 without leukocytosis, and no growth from fluid that was drained 01/12/2018. * Discontinue shaji today, 01/16/2018. Continue current antibiotics, cephazolin and doxycycline. Reassess 01/17/2018. Will discontinue antibiotics if erythema is resolved. Anemia improving on CBC 01/12/2018 and 01/15/2018. Thrombocytosis, likely reactive, with elevated inflammatory markers including ferritin, ESR and CRP. Persisting 01/15/2018. * Continue aspirin as long as he has a markedly elevated platelet count. Constipation due to opiates. Continue laxatives as ordered out of the hospital. Tobacco dependence syndrome. Continue nicotine patch. Will discuss discontinuation depending on his level of craving for tobacco. Possible osteoporosis with a ground level fall causing significant fractures. * Low vitamin-D level. Initiating vitamin-D replacement, 01/12/2018. * Advise followup after discharge with Primary Care versus Endocrinology for bone density scanning and any treatment which might be indicated. Tachycardia is likely multifactorial. Continue metoprolol. Anticipate that tachycardia will improve, especially as his anemia resolves. History of alcohol abuse and dependence, and alcohol withdrawal. Bilirubin and transaminases are normal. Alkaline phosphatase is elevated consistent with multiple fractures. Albumin is slightly low. No indication of cirrhosis or chronic liver disease. Prophylaxis. He is at elevated risk for DVT. Continue enoxaparin as ordered out of the hospital at 30 mg subcutaneous twice daily. Given that he is simultaneously on aspirin, I will also initiate proton pump inhibitor for GI protection. DISPOSITION: He will not be returning to the apartment which she shared with 2 roommates. He may be able to arrange another roommate situation. He intends to return to work. Considering an extended stay hotel which would be [employer] and his father may help pay for it. Considering discharge to inpatient substance abuse treatment facility. Discharge date set for 01/22/2018. 01/16/18 14:45 Subjective: Drains placed in fluid collection under pelvic incision today. He reports some discomfort at the drain site. Otherwise without complaint. Objective: Vital Signs Temp Pulse Resp BP Pulse Ox 36.4 C 130 H 18 127/85 H 98 01/16/18 08:25 01/16/18 08:28 01/16/18 08:25 01/16/18 08:28 01/16/18 08:25 Microbiology 01/12/18 15:30 Gram Stain - Final Synovial Fluid - Aspirate 01/12/18 15:30 Gram Stain - Final Synovial Fluid - Aspirate Laboratory Results 01/15/18 11:10 01/15/18 11:10 01/15/18 01/16/18 01/17/18 05:59 05:59 05:59 Intake Total 5305 1700 1720 Output Total 3450 1400 910 Balance 1855 300 810 Physical Exam - Physical Exam General Appearance: WD/WN, alert, no apparent distress Respiratory: No respiratory distress, No accessory muscle use Skin: normal color, warm/dry, other (Erythema along pelvic incision. Fluid collection has resolved. [address].) Neuro/Psych: no motor/sensory deficits, alert, normal mood/affect, oriented x 3 ICD10 Worksheet Patient Problems: Problems Problem Status Onset Pelvic fracture Acute S/P ORIF (open reduction internal fixation) fracture Acute
[2018-01-16] MEDS: oxyCODONE IR 5 MG TAB PO PRN ×2 (16:47→21:01)
[2018-01-16] MEDS: morphINE SR 15 MG TAB PO SCH (20:58)
[2018-01-17] MEDS: ACETAMINOPHEN 500 MG TAB PO SCH ×3 (06:31→20:57)
[2018-01-17] MEDS: traMADol 50 MG TAB PO PRN ×3 (06:34→19:20)
[2018-01-17] MEDS: POLYETHYLENE GLYCOL 3350 17 GM PKT PO SCH (08:06)
[2018-01-17] MEDS: ENOXAPARIN 40 MG/0.4 ML SYR SC SCH (08:07)
[2018-01-17] MEDS: BACITRACIN OINTMENT 1 PACKET TP SCH ×2 (08:07→20:58)
[2018-01-17] MEDS: NICOTINE 7 MG/24 HR PATCH TD SCH (08:07)
[2018-01-17] MEDS: DOXYCYCLINE HYCLATE 100 MG CAP/TAB PO SCH ×2 (08:08→20:57)
[2018-01-17] MEDS: SENNOSIDES/DOCUSATE SODIUM TAB PO SCH ×2 (08:08→21:25)
[2018-01-17] MEDS: METOPROLOL TARTRATE 25 MG TAB PO SCH ×2 (08:08→21:06)
[2018-01-17] MEDS: PANTOPRAZOLE SODIUM 40 MG TAB PO SCH (08:08)
[2018-01-17] MEDS: CHOLECALCIFEROL VIT D3 2,000 UNITS TAB/CAP PO SCH (08:08)
[2018-01-17] MEDS: AQUAPHOR OINTMENT 3.5 OZ JAR TP SCH ×2 (08:45→21:24)
[2018-01-17] MEDS: METHOCARBAMOL 750 MG TAB PO PRN (14:47)
--- NOTE | 2018-01-17 14:58 | SOAPPROG ---
SOAP Progress Note Assessment/Plan: Assessment: Debility with nonweightbearing status on the left lower extremity and flatfoot weightbearing on the right lower extremity, status post pelvic fractures and multiple surgeries on 12/29/2017, 01/02/2018 and 01/04/2018. * Initial functional independence measure 90 on 01/15/2018. Independent with bed mobility. Transfers with standby assist. Ambulates 40 ft with a front wheeled walker and standby assist. Right foot pain limits walking. Needs occasional cues for spinal precautions. * Continue PT and OT to optimize his mobility and activities of daily living towards the independent to modified independent level. Hospital delirium, and alcohol withdrawal. * Noted to have mild impairment to executive function, higher level attention, speed of processing, and higher level problem solving and reasoning. * Continue Speech and Language Pathology. Pain management. Continue oxycodone 5 to 10 mg q.3 hours p.r.n. and acetaminophen at 1000 mg scheduled q.8 hours. Continue methocarbamol and tramadol as ordered. * Add morphine SR 15 mg at bedtime starting 01/22/2018 for better pain control overnight. * Using more frequent tramadol at 50 mg q.6 hours p.r.n., and less oxycodone. Fluid collection under pelvic incision, and likely cellulitis along incision. * Send for ultrasound drainage and culture 01/12/2018. * Drained again and drains placed 01/16/2018. Output decreased from 150 cc to 105 cc. Continue to monitor. Discontinue each drain when 48 hr output is less than 30 cc. Possible cellulitis along pelvic incision versus inflammatory response to shaji. * Still erythematous on exam 01/16/2018. CBC 01/15/2018 without leukocytosis, and no growth from fluid that was drained 01/12/2018. * Discontinued shaji 01/16/2018. Continue current antibiotics, cephazolin and doxycycline. Reassess 01/18/2018. Will discontinue antibiotics if erythema is resolved. Anemia improving on CBC 01/12/2018 and 01/15/2018. Thrombocytosis, likely reactive, with elevated inflammatory markers including ferritin, ESR and CRP. Persisting 01/15/2018. * Continue aspirin as long as he has a markedly elevated platelet count. Constipation due to opiates. Continue laxatives as ordered out of the hospital. Tobacco dependence syndrome. Continue nicotine patch. Will discuss discontinuation depending on his level of craving for tobacco. Possible osteoporosis with a ground level fall causing significant fractures. * Low vitamin-D level. Initiating vitamin-D replacement, 01/12/2018. * Advise followup after discharge with Primary Care versus Endocrinology for bone density scanning and any treatment which might be indicated. Tachycardia is likely multifactorial. Continue metoprolol. Anticipate that tachycardia will improve, especially as his anemia resolves. History of alcohol abuse and dependence, and alcohol withdrawal. Bilirubin and transaminases are normal. Alkaline phosphatase is elevated consistent with multiple fractures. Albumin is slightly low. No indication of cirrhosis or chronic liver disease. Prophylaxis. He is at elevated risk for DVT. Continue enoxaparin as ordered out of the hospital at 30 mg subcutaneous twice daily. Given that he is simultaneously on aspirin, I will also initiate proton pump inhibitor for GI protection. DISPOSITION: He will not be returning to the apartment which she shared with 2 roommates. He may be able to arrange another roommate situation. He intends to return to work. Considering an extended stay hotel which would be [employer] and his father may help pay for it. Considering discharge to inpatient substance abuse treatment facility. Discharge date set for 01/22/2018. 01/17/18 14:56 Subjective: No complaints. Sleeping well. Still has symptoms of plantar fasciitis. Objective: Vital Signs Temp Pulse Resp BP Pulse Ox 36.5 C 105 H 14 129/88 H 97 01/17/18 08:00 01/17/18 08:08 01/17/18 08:00 01/17/18 08:08 01/17/18 08:00 Microbiology 01/12/18 15:30 Gram Stain - Final Synovial Fluid - Aspirate 01/12/18 15:30 Gram Stain - Final Synovial Fluid - Aspirate Laboratory Results 01/15/18 11:10 01/15/18 11:10 01/16/18 01/17/18 01/18/18 05:59 05:59 05:59 Intake Total 1700 3460 1000 Output Total 1400 3750 855 Balance 300 -290 145 Physical Exam - Physical Exam General Appearance: WD/WN, alert, no apparent distress Respiratory: No respiratory distress, No accessory muscle use Skin: normal color, warm/dry, other (Drains in place on the right side of his pelvic incision. Veyo have been removed. There is no dehiscence. There is mild erythema along the incision.) Neuro/Psych: no motor/sensory deficits, alert, normal mood/affect, oriented x 3 ICD10 Worksheet Patient Problems: Problems Problem Status Onset Pelvic fracture Acute S/P ORIF (open reduction internal fixation) fracture Acute
[2018-01-17] MEDS: oxyCODONE IR 5 MG TAB PO PRN ×2 (15:23→21:32)
[2018-01-17] MEDS: morphINE SR 15 MG TAB PO SCH (20:57)
[2018-01-18] MEDS: ACETAMINOPHEN 500 MG TAB PO SCH ×3 (05:49→21:01)
[2018-01-18] MEDS: CHOLECALCIFEROL VIT D3 2,000 UNITS TAB/CAP PO SCH (08:16)
[2018-01-18] MEDS: METOPROLOL TARTRATE 25 MG TAB PO SCH ×2 (08:16→20:59)
[2018-01-18] MEDS: traMADol 50 MG TAB PO PRN ×3 (08:17→21:29)
[2018-01-18] MEDS: PANTOPRAZOLE SODIUM 40 MG TAB PO SCH (08:18)
[2018-01-18] MEDS: ENOXAPARIN 40 MG/0.4 ML SYR SC SCH (08:18)
[2018-01-18] MEDS: DOXYCYCLINE HYCLATE 100 MG CAP/TAB PO SCH (08:18)
[2018-01-18] MEDS: POLYETHYLENE GLYCOL 3350 17 GM PKT PO SCH (08:20)
[2018-01-18] MEDS: SENNOSIDES/DOCUSATE SODIUM TAB PO SCH ×2 (08:24→21:01)
[2018-01-18] MEDS: NICOTINE 7 MG/24 HR PATCH TD SCH (10:15)
[2018-01-18] MEDS: BACITRACIN OINTMENT 1 PACKET TP SCH ×2 (10:30→21:00)
[2018-01-18] MEDS: AQUAPHOR OINTMENT 3.5 OZ JAR TP SCH ×2 (11:49→21:06)
--- NOTE | 2018-01-18 12:12 | SOAPPROG ---
SOAP Progress Note Assessment/Plan: Assessment: Debility with nonweightbearing status on the left lower extremity and flatfoot weightbearing on the right lower extremity, status post pelvic fractures and multiple surgeries on 12/29/2017, 01/02/2018 and 01/04/2018. * Initial functional independence measure 90 on 01/15/2018. Independent with bed mobility. Transfers with standby assist. Ambulates 40 ft with a front wheeled walker and standby assist. Right foot pain limits walking. Needs occasional cues for spinal precautions. * Expected total of 12 weeks of nonweightbearing on the left lower extremity. * Continue PT and OT to optimize his mobility and activities of daily living towards the independent to modified independent level. Hospital delirium, and alcohol withdrawal. * Noted to have mild impairment to executive function, higher level attention, speed of processing, and higher level problem solving and reasoning. * Continue Speech and Language Pathology. Pain management. Continue oxycodone 5 to 10 mg q.3 hours p.r.n. and acetaminophen at 1000 mg scheduled q.8 hours. Continue methocarbamol and tramadol as ordered. * Add morphine SR 15 mg at bedtime starting 01/22/2018 for better pain control overnight. * Using more frequent tramadol at 50 mg q.6 hours p.r.n., and less oxycodone. Fluid collection under pelvic incision, and likely cellulitis along incision. * Send for ultrasound drainage and culture 01/12/2018. * Drained again and drains placed 01/16/2018. Output 130 cc and 70 cc from drains 1 & 2 on 01/17/2018. Continue to monitor. Returned to interventional Radiology for drain removal when drain output is less than 10 cc per day for 2 consecutive days. Possible cellulitis along pelvic incision versus inflammatory response to shaji. * Erythema resolved on exam 01/18/2018 and no growth from fluid that was drained 01/12/2018. * Discontinued shaji 01/16/2018. * Discontinue antibiotics 01/18/2018. Anemia improving on CBC 01/12/2018 and 01/15/2018. Thrombocytosis, likely reactive, with elevated inflammatory markers including ferritin, ESR and CRP. Persisting 01/15/2018. * Continue aspirin as long as he has a markedly elevated platelet count. Constipation due to opiates. Continue laxatives as ordered out of the hospital. Tobacco dependence syndrome. Continue nicotine patch. Will discuss discontinuation depending on his level of craving for tobacco. Possible osteoporosis with a ground level fall causing significant fractures. * Low vitamin-D level. Initiating vitamin-D replacement, 01/12/2018. * Advise followup after discharge with Primary Care versus Endocrinology for bone density scanning and any treatment which might be indicated. Tachycardia is likely multifactorial. Continue metoprolol. Anticipate that tachycardia will improve, especially as his anemia resolves. History of alcohol abuse and dependence, and alcohol withdrawal. Bilirubin and transaminases are normal. Alkaline phosphatase is elevated consistent with multiple fractures. Albumin is slightly low. No indication of cirrhosis or chronic liver disease. Prophylaxis. He is at elevated risk for DVT. Continue enoxaparin 40 mg subcutaneous q.day. Given that he is simultaneously on aspirin, continue proton pump inhibitor for GI protection. DISPOSITION: He will not be returning to the apartment which she shared with 2 roommates. He may be able to arrange another roommate situation. He intends to return to work. Considering an extended stay hotel which would be [employer] and his father may help pay for it. Considering discharge to inpatient substance abuse treatment facility or sober living house. Discharge date set for 01/22/2018. 01/18/18 12:07 Subjective: No complaints. Slept well, but continues to feel that he needs morphine at HS. Otherwise depending more on tramadol than oxycodone for pain. Nursing reports itchy lesions on his back and history of bed bugs at his home. Objective: Vital Signs Temp Pulse Resp BP Pulse Ox 36.6 C 81 16 123/74 H 97 01/18/18 06:15 01/18/18 06:15 01/18/18 06:15 01/18/18 06:15 01/18/18 06:15 Microbiology 01/12/18 15:30 Gram Stain - Final Synovial Fluid - Aspirate 01/12/18 15:30 Gram Stain - Final Synovial Fluid - Aspirate Laboratory Results 01/15/18 11:10 01/15/18 11:10 01/17/18 01/18/18 01/19/18 05:59 05:59 05:59 Intake Total 3460 3700 480 Output Total 3750 3650 50 Balance -290 50 430 Physical Exam - Physical Exam General Appearance: WD/WN, alert, no apparent distress Respiratory: No respiratory distress, No accessory muscle use Skin: normal color, warm/dry, other (Erythema resolved along pelvic incision.) Neuro/Psych: no motor/sensory deficits, alert, normal mood/affect, oriented x 3 ICD10 Worksheet Patient Problems: Problems Problem Status Onset Pelvic fracture Acute S/P ORIF (open reduction internal fixation) fracture Acute
[2018-01-18] MEDS: METHOCARBAMOL 750 MG TAB PO PRN (12:50)
[2018-01-18] MEDS: morphINE SR 15 MG TAB PO SCH (21:01)
[2018-01-19] MEDS: ACETAMINOPHEN 500 MG TAB PO SCH ×3 (05:45→21:00)
[2018-01-19] MEDS: traMADol 50 MG TAB PO PRN ×3 (08:22→20:59)
[2018-01-19] MEDS: BACITRACIN OINTMENT 1 PACKET TP SCH ×2 (08:22→20:58)
[2018-01-19] MEDS: METHOCARBAMOL 750 MG TAB PO PRN (08:22)
[2018-01-19] MEDS: ENOXAPARIN 40 MG/0.4 ML SYR SC SCH (08:22)
[2018-01-19] MEDS: NICOTINE 7 MG/24 HR PATCH TD SCH (08:22)
[2018-01-19] MEDS: CHOLECALCIFEROL VIT D3 2,000 UNITS TAB/CAP PO SCH (08:22)
[2018-01-19] MEDS: PANTOPRAZOLE SODIUM 40 MG TAB PO SCH (08:23)
[2018-01-19] MEDS: METOPROLOL TARTRATE 25 MG TAB PO SCH ×2 (08:23→21:00)
[2018-01-19] MEDS: AQUAPHOR OINTMENT 3.5 OZ JAR TP SCH ×2 (08:38→21:15)
[2018-01-19] MEDS: POLYETHYLENE GLYCOL 3350 17 GM PKT PO SCH (08:38)
[2018-01-19] MEDS: SENNOSIDES/DOCUSATE SODIUM TAB PO SCH ×2 (08:39→21:16)
--- NOTE | 2018-01-19 12:47 | SOAPPROG ---
SOAP Progress Note Assessment/Plan: Assessment: Debility with nonweightbearing status on the left lower extremity and flatfoot weightbearing on the right lower extremity, status post pelvic fractures and multiple surgeries on 12/29/2017, 01/02/2018 and 01/04/2018. * Initial functional independence measure 90 on 01/15/2018. Independent with bed mobility. Transfers with standby assist. Ambulates 40 ft with a front wheeled walker and standby assist. Right foot pain limits walking. Needs occasional cues for spinal precautions. * Expect total of 12 weeks of nonweightbearing on the left lower extremity. * Continue PT and OT to optimize his mobility and activities of daily living towards the independent to modified independent level. Hospital delirium, and alcohol withdrawal. * Noted to have mild impairment to executive function, higher level attention, speed of processing, and higher level problem solving and reasoning. * Continue Speech and Language Pathology. Pain management. Continue oxycodone 5 to 10 mg q.3 hours p.r.n. and acetaminophen at 1000 mg scheduled q.8 hours. Continue methocarbamol and tramadol as ordered. * Add morphine SR 15 mg at bedtime starting 01/22/2018 for better pain control overnight. * Using more frequent tramadol at 50 mg q.6 hours p.r.n., and less oxycodone. Fluid collection under pelvic incision, and likely cellulitis along incision. * Send for ultrasound drainage and culture 01/12/2018. * Drained again and drains placed 01/16/2018. Output 130 cc and 70 cc from drains 1 & 2 on 01/17/2018; 185 cc and 7 cc as of 01/19/2018. Continue to monitor. Return to interventional Radiology for drain removal when drain output is less than 10 cc per day for 2 consecutive days. Possible cellulitis along pelvic incision versus inflammatory response to shaji. * Erythema resolved on exam 01/18/2018 and no growth from fluid that was drained 01/12/2018. * Discontinued shaji 01/16/2018. * Discontinued antibiotics 01/18/2018. Anemia improving on CBC 01/12/2018 and 01/15/2018. * Recheck CBC 01/22/2018. Thrombocytosis, likely reactive, with elevated inflammatory markers including ferritin, ESR and CRP. Persisting 01/15/2018. * Continue aspirin as long as he has a markedly elevated platelet count. * Recheck CBC 01/22/2018. Constipation due to opiates. Continue laxatives as ordered out of the hospital. Tobacco dependence syndrome. Continue nicotine patch. Will discuss discontinuation depending on his level of craving for tobacco. Possible osteoporosis with a ground level fall causing significant fractures. * Low vitamin-D level. Initiating vitamin-D replacement, 01/12/2018. * Advise followup after discharge with Primary Care versus Endocrinology for bone density scanning and any treatment which might be indicated. Tachycardia is likely multifactorial. Continue metoprolol. Anticipate that tachycardia will improve, especially as his anemia resolves. History of alcohol abuse and dependence, and alcohol withdrawal. Bilirubin and transaminases are normal. Alkaline phosphatase is elevated consistent with multiple fractures. Albumin is slightly low. No indication of cirrhosis or chronic liver disease. Prophylaxis. He is at elevated risk for DVT. Continue enoxaparin 40 mg subcutaneous q.day. Given that he is simultaneously on aspirin, continue proton pump inhibitor for GI protection. DISPOSITION: He will not be returning to the apartment which she shared with 2 roommates. He may be able to arrange another roommate situation. He intends to return to work. Considering an extended stay hotel which would be ADA compliant and his father may help pay for it. Considering discharge to inpatient substance abuse treatment facility or sober living house. Discharge date set for 01/22/2018. 01/19/18 12:44 Subjective: No complaints. Has pain but is trying not take oxycodone. Sleeping okay. He has noted continued drainage from 1 of the drains under his pelvic incision. No fevers or chills. Objective: Vital Signs Temp Pulse Resp BP Pulse Ox 36.4 C 86 16 138/79 H 96 01/19/18 05:55 01/19/18 08:23 01/19/18 05:55 01/19/18 08:23 01/19/18 05:55 Microbiology 01/12/18 15:30 Gram Stain - Final Synovial Fluid - Aspirate 01/12/18 15:30 Gram Stain - Final Synovial Fluid - Aspirate Laboratory Results 01/15/18 11:10 01/15/18 11:10 01/18/18 01/19/18 01/20/18 05:59 05:59 05:59 Intake Total 3700 5230 Output Total 3650 2992 500 Balance 50 2238 -500 Physical Exam - Physical Exam General Appearance: WD/WN, alert, no apparent distress Respiratory: normal breath sounds, No crackles, No rhonchi, No wheezing Cardiac/Chest: regular rate, rhythm, No edema, No diastolic murmur, No systolic murmur Skin: normal color, warm/dry Neuro/Psych: no motor/sensory deficits, alert, normal mood/affect, oriented x 3 ICD10 Worksheet Patient Problems: Problems Problem Status Onset Pelvic fracture Acute S/P ORIF (open reduction internal fixation) fracture Acute
--- NOTE | 2018-01-19 19:07 | PDOREHIP ---
Admission [facility] - Admission - 3 Day Assessment Period Admission Date/Day 1: 01/11/18 Day 2: 01/12/18 Day 3: 01/13/18 - Active Diagnoses Comorbidities and Co-existing Conditions at Admission: 67566. None of the Above - Skin Conditions Unhealed Pressure Ulcer (1 or more/Stage 1 or >)-Admission: 0. No (Late entry for 01/12/18) # Stage 1 Pressure Ulcers-Admission: 0 # Stage 2 Pressure Ulcers-Admission: 0 # Stage 3 Pressure Ulcers-Admission: 0 # Stage 4 Pressure Ulcers-Admission: 0 # Unstageable Pressure Ulcers (Non-remove Dress)-Admission: 0 # Unstageable Pressure Ulcers (Slough/Eschar)-Admission: 0 # Unstageable Pressure Ulcers (Deep Tissue Injury)-Admission: 0 Discharge [facility] - Discharge - 3 Day Assessment Period 2 Days Prior to Anticipated Discharge Date: 01/23/18 1 Day Prior to Anticipated Discharge Date: 01/24/18 Anticipated Discharge Date: 01/25/18
[2018-01-19] MEDS: morphINE SR 15 MG TAB PO SCH (20:58)
[2018-01-20] MEDS: ACETAMINOPHEN 500 MG TAB PO SCH ×3 (06:04→21:28)
[2018-01-20] MEDS: traMADol 50 MG TAB PO PRN ×3 (06:04→20:34)
[2018-01-20] MEDS: METOPROLOL TARTRATE 25 MG TAB PO SCH ×2 (11:37→20:35)
[2018-01-20] MEDS: PANTOPRAZOLE SODIUM 40 MG TAB PO SCH (11:38)
[2018-01-20] MEDS: ENOXAPARIN 40 MG/0.4 ML SYR SC SCH (11:38)
[2018-01-20] MEDS: NICOTINE 7 MG/24 HR PATCH TD SCH (11:39)
[2018-01-20] MEDS: AQUAPHOR OINTMENT 3.5 OZ JAR TP SCH ×2 (11:45→21:30)
[2018-01-20] MEDS: BACITRACIN OINTMENT 1 PACKET TP SCH ×2 (11:45→21:28)
[2018-01-20] MEDS: POLYETHYLENE GLYCOL 3350 17 GM PKT PO SCH (11:46)
[2018-01-20] MEDS: SENNOSIDES/DOCUSATE SODIUM TAB PO SCH ×2 (11:46→21:30)
[2018-01-20] MEDS: CHOLECALCIFEROL VIT D3 2,000 UNITS TAB/CAP PO SCH (13:17)
[2018-01-20] MEDS: METHOCARBAMOL 750 MG TAB PO PRN ×2 (13:18→21:32)
--- NOTE | 2018-01-20 13:45 | HOSPPROG ---
Hospitalist Progress Note Assessment/Plan: Assessment: 32 yo p/w acute pelvic fracture c/b possible cellulitis, alcohol withdraw Plan: # Pelvic fracture. Acute, requiring multiple surgeries and w/ indwelling drain currently -no felipe-drain cellulitis currently -pain currently well managed, patient reports he is using tramadol preferentially to oxy IR to reduce addictive potential -plan to add morph SR at DC if pain needs persist -cont monitor drain output, consider removal by IR when < 10cc/day x 2 days # Alcohol abuse disorder and withdraw. Currently no e/o withdraw other than tremulousness, but patient reports his tremulousness is chronic and last intake > 30 days ago, so ongoing withdraw unlikely # Cellulitis. S/p Abx, discontinued 01/18, no recurrence # Anemia and thrombocytosis. Likely 2/2 inflammation and recent surgeries, most recent Hgb stable 10.1, Plts 890,000 -repeat CBC on 01/22 -cont asa # Possible osteoporosis. Low vit-D, possibly pathological fxr -cont Vit-D supplementation and outpt Endo referral # Constipation. Resolved Diet. Regular PPx. High risk, lovenox 40 Code. Full Dispo. ADD uncertain, ongoing therapy needs Subjective: patient had BM, pain controlled w/ ultram Objective: Vital Signs Temp Pulse Resp BP Pulse Ox 36.6 C 115 H 18 127/87 H 97 01/20/18 08:00 01/20/18 11:37 01/20/18 08:00 01/20/18 11:37 01/20/18 08:00 Microbiology 01/12/18 15:30 Gram Stain - Final Synovial Fluid - Aspirate 01/12/18 15:30 Gram Stain - Final Synovial Fluid - Aspirate Laboratory Results 01/15/18 11:10 01/15/18 11:10 01/19/18 01/20/18 01/21/18 05:59 05:59 05:59 Intake Total 5230 3440 840 Output Total 2992 3072 50 Balance 2238 368 790 - Physical Exam Constitutional: no apparent distress, appears nourished, not in pain Cardiovascular: regular rate and rhythym, no murmur, rub, or gallop, No edema Respiratory: no respiratory distress, no rales or rhonchi, clear to auscultation Gastrointestinal: normoactive bowel sounds, soft, non-tender abdomen, no palpable masses, No distension Skin: other (healing, firm, pink skin tissue inferior to drain site w/o tenderness/erythema/induration) Neurologic: AAOx3, sensation intact bilaterally, other (mildly tremulous diffusely throughout), No weakness, No asterixes Psychiatric: interacting appropriately, not anxious, not encephalopathic, thought process linear ICD10 Worksheet Patient Problems: Problems Problem Status Onset Pelvic fracture Acute S/P ORIF (open reduction internal fixation) fracture Acute
[2018-01-20] MEDS: morphINE SR 15 MG TAB PO SCH (21:28)
[2018-01-21] MEDS: ACETAMINOPHEN 500 MG TAB PO SCH ×3 (06:16→21:02)
[2018-01-21] MEDS: traMADol 50 MG TAB PO PRN ×3 (06:18→19:51)
[2018-01-21] MEDS: BACITRACIN OINTMENT 1 PACKET TP SCH ×2 (08:56→19:51)
[2018-01-21] MEDS: CHOLECALCIFEROL VIT D3 2,000 UNITS TAB/CAP PO SCH (08:56)
[2018-01-21] MEDS: ENOXAPARIN 40 MG/0.4 ML SYR SC SCH (08:56)
[2018-01-21] MEDS: PANTOPRAZOLE SODIUM 40 MG TAB PO SCH (08:56)
[2018-01-21] MEDS: METOPROLOL TARTRATE 25 MG TAB PO SCH ×2 (08:57→21:02)
[2018-01-21] MEDS: NICOTINE 7 MG/24 HR PATCH TD SCH (08:58)
[2018-01-21] MEDS: SENNOSIDES/DOCUSATE SODIUM TAB PO SCH ×2 (08:59→19:29)
[2018-01-21] MEDS: POLYETHYLENE GLYCOL 3350 17 GM PKT PO SCH (08:59)
[2018-01-21] MEDS: AQUAPHOR OINTMENT 3.5 OZ JAR TP SCH ×2 (08:59→19:29)
[2018-01-21] MEDS: METHOCARBAMOL 750 MG TAB PO PRN ×2 (09:40→17:45)
[2018-01-21] MEDS: morphINE SR 15 MG TAB PO SCH (21:02)
--- NOTE | 2018-01-21 23:41 | HOSPPROG ---
Hospitalist Progress Note Assessment/Plan: Assessment: 32 yo p/w acute pelvic fracture c/b possible cellulitis, alcohol withdraw Plan: # Pelvic fracture. Acute, requiring multiple surgeries and w/ indwelling drain currently -no felipe-drain cellulitis currently -pain currently well managed, patient reports he is using tramadol preferentially to oxy IR to reduce addictive potential -cont HS morph SR -cont monitor drain output (>150ml past 24hrs), consider removal by IR when < 10cc/day x 2 days # Alcohol abuse disorder and withdraw. Currently no e/o withdraw other than tremulousness, but patient reports his tremulousness is chronic and last intake > 30 days ago, so ongoing withdraw unlikely # Cellulitis. S/p Abx, discontinued 01/18, no recurrence # Anemia and thrombocytosis. Likely 2/2 inflammation and recent surgeries, most recent Hgb stable 10.1, Plts 890,000 -repeat CBC on 01/22 -cont asa # Possible osteoporosis. Cont Vit-D daily supplementation and outpt Endo referral -recommend considering high-dose weekly Vit D 50,000 units x 8 weeks given significantly low vit-D, possibly pathological fxr # Constipation. Resolved # Chronic tachycardia. Patient reports his baseline HR > 100, suspect that his baseline tachycardia + tremulousness are anxiety/mood physiologic/physical signs , and he reports that these have been present, w/o work-up, for quite some time -recommend providing him w/ outpt PCP referral, since he should probably have outpt Echo to ensure not 2/2 structural heart cause prior to attributing it to mood -check TSH w/ AM labs Diet. Regular PPx. High risk, lovenox 40 Code. Full Dispo. ADD uncertain, ongoing therapy needs Subjective: pain controlled, having BMs, reports he doesn't feel anxious Objective: Vital Signs Temp Pulse Resp BP Pulse Ox 36.9 C 90 15 117/79 97 01/21/18 19:46 01/21/18 21:02 01/21/18 19:46 01/21/18 21:02 01/21/18 19:46 Laboratory Results 01/15/18 11:10 01/15/18 11:10 01/20/18 01/21/18 01/22/18 05:59 05:59 05:59 Intake Total 3440 1840 1700 Output Total 3072 1818 225 Balance 325 66 3145 - Physical Exam Constitutional: no apparent distress, not in pain, uncomfortable, unkempt Cardiovascular: tachycardia, No systolic murmur, No irregularly irregular, No edema Respiratory: no respiratory distress, no rales or rhonchi, clear to auscultation Gastrointestinal: normoactive bowel sounds, soft, non-tender abdomen, other (MIGUELITO drain in place), No distension Skin: other (healing drain site, no induration/erythema/tenderness) Neurologic: AAOx3, sensation intact bilaterally, weakness (3/5 bilat LE 2/2 pain ), other (visibly tremulous throughout) Psychiatric: interacting appropriately, not anxious, not encephalopathic, thought process linear ICD10 Worksheet Patient Problems: Problems Problem Status Onset Pelvic fracture Acute S/P ORIF (open reduction internal fixation) fracture Acute
[2018-01-22] MEDS: traMADol 50 MG TAB PO PRN ×4 (02:56→21:11)
[2018-01-22] MEDS: ACETAMINOPHEN 500 MG TAB PO SCH ×3 (05:33→21:09)
[2018-01-22] MEDS: METOPROLOL TARTRATE 25 MG TAB PO SCH ×2 (08:34→21:10)
[2018-01-22] MEDS: PANTOPRAZOLE SODIUM 40 MG TAB PO SCH (08:44)
[2018-01-22] MEDS: NICOTINE 7 MG/24 HR PATCH TD SCH (08:44)
[2018-01-22] MEDS: CHOLECALCIFEROL VIT D3 2,000 UNITS TAB/CAP PO SCH (08:44)
[2018-01-22] MEDS: POLYETHYLENE GLYCOL 3350 17 GM PKT PO SCH (08:49)
[2018-01-22] MEDS: SENNOSIDES/DOCUSATE SODIUM TAB PO SCH (08:49)
[2018-01-22] MEDS: ENOXAPARIN 40 MG/0.4 ML SYR SC SCH (09:06)
[2018-01-22] MEDS: BACITRACIN OINTMENT 1 PACKET TP SCH (09:06)
[2018-01-22] MEDS: AQUAPHOR OINTMENT 3.5 OZ JAR TP SCH ×2 (09:11→20:58)
[2018-01-22] MEDS ORDERED: SENNOSIDES/DOCUSATE SODIUM TAB PO PRN (09:18)
--- NOTE | 2018-01-22 09:39 | SOAPPROG ---
SOAP Progress Note Assessment/Plan: Assessment: Debility with nonweightbearing status on the left lower extremity and flatfoot weightbearing on the right lower extremity, status post pelvic fractures and multiple surgeries on 12/29/2017, 01/02/2018 and 01/04/2018. * Initial functional independence measure 90 on 01/15/2018, improved to 97 as of 01/22/2018. Independent with bed mobility, squat pivot transfer and sit to stand with a walker. Ambulated 40-50 feet with front wheeled walker or crutches with contact guard to minimal assist. Mobility limited by endurance and right foot pain. Climbed and descended 3 stairs with crutches and minimal assist. Independent in his room during the day with a front wheeled walker. Requires setup for ADLs with reduced initiation. Does grooming and hygiene seated. At supervision level for transfers with OT. * Expect total of 12 weeks of nonweightbearing on the left lower extremity. * Continue PT and OT to optimize his mobility and activities of daily living towards the independent to modified independent level. Hospital delirium, and alcohol withdrawal. * Has met all speech therapy goals as of 01/22/2018. Pain management. Continue oxycodone 5 to 10 mg q.3 hours p.r.n. and acetaminophen at 1000 mg scheduled q.8 hours. Continue methocarbamol and tramadol as ordered. * Add morphine SR 15 mg at bedtime starting 01/22/2018 for better pain control overnight. * Using tramadol 50 mg 3 times a day for the past 2 days. Not using any oxycodone which has auto-discontinued. * Trial of flexion boot for right foot when in bed, to reduce symptoms from presumed plantar fasciitis. Fluid collection under pelvic incision, and likely cellulitis along incision. * Send for ultrasound drainage and culture 01/12/2018. * Drained again and drains placed 01/16/2018. Output drain 1. 155 cc an drain 2. 13 cc as of yesterday morning. Continue to monitor. Return to interventional Radiology for drain removal when drain output is less than 10 cc per day for 2 consecutive days. Possible cellulitis along pelvic incision versus inflammatory response to shaji. * Erythema resolved on exam 01/18/2018 and no growth from fluid that was drained 01/12/2018. * Discontinued shaji 01/16/2018. * Discontinued antibiotics 01/18/2018. * Largely healed. Discontinue bacitracin, 01/22/2018. Anemia improving on CBC 01/12/2018 and 01/15/2018 and 01/22/2018. * Recheck CBC 01/25/2018. Thrombocytosis, likely reactive, with elevated inflammatory markers including ferritin, ESR and CRP. Persisting 01/15/2018. Improving 01/15/2018 but still quite elevated at 509. * Discontinue aspirin starting 01/23/2018. * Recheck CBC 01/25/2018. Constipation due to opiates. Continue laxatives as ordered out of the hospital. Tobacco dependence syndrome. Continue nicotine patch. Will discuss discontinuation depending on his level of craving for tobacco. Possible osteoporosis with a ground level fall causing significant fractures. * Low vitamin-D level. Initiating vitamin-D replacement, 01/12/2018. * Advise followup after discharge with Primary Care versus Endocrinology for bone density scanning and any treatment which might be indicated. Tachycardia is likely multifactorial. Continue metoprolol. * Improving 01/22/2018. * TSH normal. History of alcohol abuse and dependence, and alcohol withdrawal. Bilirubin and transaminases are normal. Alkaline phosphatase is elevated consistent with multiple fractures. Albumin is slightly low. No indication of cirrhosis or chronic liver disease. Prophylaxis. He is at elevated risk for DVT. Continue enoxaparin 40 mg subcutaneous q.day. Given that he is simultaneously on aspirin, continue proton pump inhibitor for GI protection. DISPOSITION: Attended staffing, 15 min. Discussed with case management, nursing, to dietitian, PT, OT, [employer]. He has not been accepted at an inpatient alcohol rehabilitation facility due to mobility issues and continuing to require pain medications. Father states today that he intends to bring him to his home in [place] upon discharge. Will need to arrange for follow-up, and for continued anticoagulation until he can resume full weight-bearing. Tentative discharge date set for 01/25/2018. 01/22/18 09:34 01/22/18 12:24 Subjective: No complaints. Sleeping well. Continues to have right foot pain when he weight bears. He describes as plantar and lateral. Kinesiotaping [employer] taping has given him minimal relief. No fevers or chills. No cough or dyspnea. Objective: Vital Signs Temp Pulse Resp BP Pulse Ox 36.7 C 81 15 114/86 H 95 01/22/18 05:52 01/22/18 05:52 01/22/18 05:52 01/22/18 05:52 01/22/18 05:52 Laboratory Results 01/22/18 05:43 01/15/18 11:10 01/21/18 01/22/18 01/23/18 05:59 05:59 05:59 Intake Total 1840 2100 Output Total 1818 1690 Balance 22 410 - Time Spent With Patient Time Spent With Patient: Greater than 35 min floor time today, including more than 50% of time in coordination of care during staffing meeting, and counseling patient and his father. Physical Exam - Physical Exam General Appearance: WD/WN, alert, no apparent distress Respiratory: No respiratory distress, No accessory muscle use Skin: normal color, warm/dry, other (Pelvic incision healing, with no erythema, drainage or purulence.) Neuro/Psych: no motor/sensory deficits, alert, normal mood/affect, oriented x 3 ICD10 Worksheet Patient Problems: Problems Problem Status Onset Pelvic fracture Acute S/P ORIF (open reduction internal fixation) fracture Acute
[2018-01-22] MEDS: METHOCARBAMOL 750 MG TAB PO PRN ×2 (13:12→21:09)
[2018-01-23] MEDS: ACETAMINOPHEN 500 MG TAB PO SCH ×3 (05:27→21:02)
[2018-01-23] MEDS: ENOXAPARIN 40 MG/0.4 ML SYR SC SCH (08:54)
[2018-01-23] MEDS: CHOLECALCIFEROL VIT D3 2,000 UNITS TAB/CAP PO SCH (08:54)
[2018-01-23] MEDS: PANTOPRAZOLE SODIUM 40 MG TAB PO SCH (08:54)
[2018-01-23] MEDS: NICOTINE 7 MG/24 HR PATCH TD SCH (08:54)
[2018-01-23] MEDS: POLYETHYLENE GLYCOL 3350 17 GM PKT PO SCH (08:54)
[2018-01-23] MEDS: METOPROLOL TARTRATE 25 MG TAB PO SCH ×2 (08:54→21:03)
[2018-01-23] MEDS: AQUAPHOR OINTMENT 3.5 OZ JAR TP SCH ×2 (08:56→21:05)
[2018-01-23] MEDS: METHOCARBAMOL 750 MG TAB PO PRN (10:01)
[2018-01-23] MEDS: traMADol 50 MG TAB PO PRN ×2 (12:49→19:26)
--- NOTE | 2018-01-23 14:31 | SOAPPROG ---
SOAP Progress Note Assessment/Plan: Assessment: Debility with nonweightbearing status on the left lower extremity and flatfoot weightbearing on the right lower extremity, status post pelvic fractures and multiple surgeries on 12/29/2017, 01/02/2018 and 01/04/2018. * Initial functional independence measure 90 on 01/15/2018, improved to 97 as of 01/22/2018. Independent with bed mobility, squat pivot transfer and sit to stand with a walker. Ambulated 40-50 feet with front wheeled walker or crutches with contact guard to minimal assist. Mobility limited by endurance and right foot pain. Climbed and descended 3 stairs with crutches and minimal assist. Independent in his room during the day with a front wheeled walker. Requires setup for ADLs with reduced initiation. Does grooming and hygiene seated. At supervision level for transfers with OT. * Expect total of 12 weeks of nonweightbearing on the left lower extremity. * Continue PT and OT to optimize his mobility and activities of daily living towards the independent to modified independent level. Hospital delirium, and alcohol withdrawal. * Has met all speech therapy goals as of 01/22/2018. Pain management. * Morphine SR at HS has auto stopped. He is no longer using oxycodone. He wishes to continue tramadol. Increased dosing from 50 mg q.6 hours p.r.n. to 50 -100 mg q.6 hours p.r.n. * Trial of flexion boot for right foot when in bed, to reduce symptoms from presumed plantar fasciitis. * X ray right foot regarding pain at base of 5th metatarsal. Fluid collection under pelvic incision, and likely cellulitis along incision. * Send for ultrasound drainage and culture 01/12/2018. * Drained again and drains placed 01/16/2018. Plan has been to return to interventional Radiology for drain removal when drain output is less than 10 cc per day for 2 consecutive days. Anticipate that he will be ready for removal on 01/24/2018. Left message for Interventional Radiology regarding whether he needs to return there for removal or if it can be done on the unit. Possible cellulitis along pelvic incision versus inflammatory response to shaji. * Erythema resolved on exam 01/18/2018 and no growth from fluid that was drained 01/12/2018. * Discontinued shaji 01/16/2018. * Discontinued antibiotics 01/18/2018. * Largely healed. Discontinue bacitracin, 01/22/2018. Anemia improving on CBC 01/12/2018 and 01/15/2018 and 01/22/2018. * Recheck CBC 01/25/2018. Thrombocytosis, likely reactive, with elevated inflammatory markers including ferritin, ESR and CRP. Persisting 01/15/2018. Improving 01/15/2018 but still elevated at 509. * Discontinue aspirin starting 01/23/2018. * Recheck CBC 01/25/2018. Constipation due to opiates. Continue laxatives as ordered out of the hospital. Tobacco dependence syndrome. Continue nicotine patch. Will discuss discontinuation depending on his level of craving for tobacco. Possible osteoporosis with a ground level fall causing significant fractures. * Low vitamin-D level. Initiating vitamin-D replacement, 01/12/2018. * Advise followup after discharge with Primary Care versus Endocrinology for bone density scanning and any treatment which might be indicated. Tachycardia is likely multifactorial. Continue metoprolol. * Improving 01/22/2018. * TSH normal. History of alcohol abuse and dependence, and alcohol withdrawal. Bilirubin and transaminases are normal. Alkaline phosphatase is elevated consistent with multiple fractures. Albumin is slightly low. No signs or symptoms of cirrhosis or chronic liver disease. Prophylaxis. He is at elevated risk for DVT. Continue enoxaparin 40 mg subcutaneous q.day, for 35 days; since the fracture would be [id number]; since the most recent surgery would be 01/28/2018. Aspirin stopped 01/22/2018; will stop pantoprazole 01/24/2018. DISPOSITION: He has not been accepted at an inpatient alcohol rehabilitation facility due to mobility issues and continuing to require pain medications. He plans to return with his father to father's home in [place] upon discharge. Will need to arrange for follow-up, and for continued anticoagulation until he can resume full weight-bearing. Tentative discharge date set for 01/25/2018. 01/23/18 15:06 Subjective: Was uncomfortable overnight. HS morphine SR had auto stopped. He does not want to resume morphine but would like a higher dose of tramadol. Otherwise without complaints. Now planning to discharge with his father to his father's home in [place]. PT reports that right foot pain and now appears to be centered at to the 5th metatarsal base. Objective: Vital Signs Temp Pulse Resp BP Pulse Ox 36.6 C 90 16 124/8 H 98 01/23/18 08:00 01/23/18 08:00 01/23/18 08:00 01/23/18 08:00 01/23/18 08:00 Microbiology 01/12/18 15:30 Gram Stain - Final Synovial Fluid - Aspirate 01/12/18 15:30 Gram Stain - Final Synovial Fluid - Aspirate Laboratory Results 01/22/18 05:43 01/15/18 11:10 01/22/18 01/23/18 01/24/18 05:59 05:59 05:59 Intake Total 2100 1025 980 Output Total 1690 1003 907 Balance 410 22 73 Physical Exam - Physical Exam General Appearance: WD/WN, alert, no apparent distress Respiratory: No respiratory distress, No accessory muscle use Skin: normal color, warm/dry Neuro/Psych: no motor/sensory deficits, alert, normal mood/affect, oriented x 3 ICD10 Worksheet Patient Problems: Problems Problem Status Onset Pelvic fracture Acute S/P ORIF (open reduction internal fixation) fracture Acute
[2018-01-24] MEDS: traMADol 50 MG TAB PO PRN ×3 (06:18→22:13)
[2018-01-24] MEDS: ACETAMINOPHEN 500 MG TAB PO SCH ×3 (06:19→20:50)
[2018-01-24] MEDS: CHOLECALCIFEROL VIT D3 2,000 UNITS TAB/CAP PO SCH (07:53)
[2018-01-24] MEDS: METOPROLOL TARTRATE 25 MG TAB PO SCH ×2 (07:53→20:52)
[2018-01-24] MEDS: NICOTINE 7 MG/24 HR PATCH TD SCH (07:53)
[2018-01-24] MEDS: ENOXAPARIN 40 MG/0.4 ML SYR SC SCH (07:54)
[2018-01-24] MEDS: AQUAPHOR OINTMENT 3.5 OZ JAR TP SCH ×2 (08:04→20:54)
[2018-01-24] MEDS: POLYETHYLENE GLYCOL 3350 17 GM PKT PO SCH (08:05)
[2018-01-24] MEDS: METHOCARBAMOL 750 MG TAB PO PRN ×2 (08:50→19:29)
--- NOTE | 2018-01-24 09:37 | SOAPPROG ---
SOAP Progress Note Assessment/Plan: Assessment: Debility with nonweightbearing status on the left lower extremity and flatfoot weightbearing on the right lower extremity, status post pelvic fractures and multiple surgeries on 12/29/2017, 01/02/2018 and 01/04/2018. * Initial functional independence measure 90 on 01/15/2018, improved to 97 as of 01/22/2018. Independent with bed mobility, squat pivot transfer and sit to stand with a walker. Ambulated 40-50 feet with front wheeled walker or crutches with contact guard to minimal assist. Mobility limited by endurance and right foot pain. Climbed and descended 3 stairs with crutches and minimal assist. Independent in his room during the day with a front wheeled walker. Requires setup for ADLs with reduced initiation. Does grooming and hygiene seated. At supervision level for transfers with OT. * Expect total of 12 weeks of nonweightbearing on the left lower extremity. * Continue PT and OT to optimize his mobility and activities of daily living towards the independent to modified independent level. Tachycardia, tachypnea, hypoxia, right calf and left groin pain, 01/24/2018. * No DVT and no pulmonary embolus on studies today, 01/24/2018. Pain management. * Morphine SR at HS has auto stopped. He is no longer using oxycodone. He wishes to continue tramadol. Increased dosing from 50 mg q.6 hours p.r.n. to 50 -100 mg q.6 hours p.r.n. * Trial of flexion boot for right foot when in bed, to reduce symptoms from presumed plantar fasciitis. * X ray right foot regarding pain at base of 5th metatarsal ruled out any osseous abnormality. Fluid collection under pelvic incision, and likely cellulitis along incision. * Send for ultrasound drainage and culture 01/12/2018. * Drained again and drains placed 01/16/2018. Plan has been to return to interventional Radiology for drain removal when drain output is less than 10 cc per day for 2 consecutive days. * More superficial of the 2 drains fell out on 01/23/2018. Drainage on the deeper drain as of 01/24/2018 is too much to consider removal. Nursing to instruct on managing and emptying the drains. Likely removal when he follows up with medical care after discharge. Possible cellulitis along pelvic incision versus inflammatory response to shaji. * Erythema resolved on exam 01/18/2018 and no growth from fluid that was drained 01/12/2018. * Discontinued shaji 01/16/2018. * Discontinued antibiotics 01/18/2018. * Largely healed. Discontinue bacitracin, 01/22/2018. Anemia improving on CBC 01/12/2018 and 01/15/2018 and 01/22/2018. * Recheck CBC 01/25/2018. Thrombocytosis, likely reactive, with elevated inflammatory markers including ferritin, ESR and CRP. Persisting 01/15/2018. Improving 01/15/2018 but still elevated at 509. * Discontinue aspirin starting 01/23/2018. * Recheck CBC 01/25/2018. Hospital delirium, and alcohol withdrawal. * Has met all speech therapy goals as of 01/22/2018. Constipation due to opiates. Continue laxatives as ordered out of the hospital. Tobacco dependence syndrome. Continue nicotine patch. Will discuss discontinuation depending on his level of craving for tobacco. Possible osteoporosis with a ground level fall causing significant fractures. * Low vitamin-D level. Initiating vitamin-D replacement, 01/12/2018. * Advise followup after discharge with Primary Care versus Endocrinology for bone density scanning and any treatment which might be indicated. Tachycardia is likely multifactorial. Continue metoprolol. * Improving 01/22/2018. * TSH normal. History of alcohol abuse and dependence, and alcohol withdrawal. Bilirubin and transaminases are normal. Alkaline phosphatase is elevated consistent with multiple fractures. Albumin is slightly low. No signs or symptoms of cirrhosis or chronic liver disease. Prophylaxis. He is at elevated risk for DVT. Continue enoxaparin 40 mg subcutaneous q.day, for 35 days; since the fracture would be [id number]/01/2018; since the most recent surgery would be 01/28/2018. Aspirin stopped 01/22/2018; will stop pantoprazole 01/24/2018. DISPOSITION: He has not been accepted at an inpatient alcohol rehabilitation facility due to mobility issues and continuing to require pain medications. He plans to return with his father to father's home in [place] upon discharge. He will need to arrange Orthopedic follow-up. His new primary care provider in [place] is Oliver Gonzalez with [facility]. Discharge 2017. 01/24/18 15:43 Subjective: Nurse noted tachycardia this morning. Patient reports increased pain and has pain particularly at the left groin. He also had hypoxia today with oxygen saturation of 91% on room air, lower than he has been measured previously. He says he feels he is breathing heavy because of exercise and physical therapy. No cough. No fevers or chills. Objective: Vital Signs Temp Pulse Resp BP Pulse Ox 36.9 C 168 H 18 119/75 91 L 01/24/18 08:00 01/24/18 08:00 01/24/18 08:00 01/24/18 08:00 01/24/18 08:00 Microbiology 01/12/18 15:30 Gram Stain - Final Synovial Fluid - Aspirate 01/12/18 15:30 Gram Stain - Final Synovial Fluid - Aspirate Laboratory Results 01/22/18 05:43 01/15/18 11:10 01/23/18 01/24/18 01/25/18 05:59 05:59 05:59 Intake Total 1025 2460 220 Output Total 1003 2535 200 Balance 22 -75 20 Physical Exam - Physical Exam General Appearance: WD/WN, alert, no apparent distress Respiratory: normal breath sounds, other (Mildly tachypneic), No crackles, No rhonchi, No wheezing Cardiac/Chest: regular rate, rhythm, tachycardia, No edema, No JVD, No diastolic murmur, No systolic murmur Skin: normal color, warm/dry Extremities: calf tenderness (Right calf), No pedal edema, No swelling Neuro/Psych: no motor/sensory deficits, alert, normal mood/affect, oriented x 3 ICD10 Worksheet Patient Problems: Problems Problem Status Onset Pelvic fracture Acute S/P ORIF (open reduction internal fixation) fracture Acute
[2018-01-24] MEDS ORDERED: IOPAMIDOL (ISOVUE 370) 100 ML BTL IV ONE (13:28)
--- NOTE | 2018-01-24 15:51 | PDOREHIP ---
Admission [facility] - Admission - 3 Day Assessment Period Admission Date/Day 1: 01/11/18 Day 2: 01/12/18 Day 3: 01/13/18 - Active Diagnoses Comorbidities and Co-existing Conditions at Admission: 15767. None of the Above Discharge [facility] - Discharge - 3 Day Assessment Period 2 Days Prior to Anticipated Discharge Date: 01/23/18 1 Day Prior to Anticipated Discharge Date: 01/24/18 Anticipated Discharge Date: 01/25/18 - Discharge Skin Conditions Unhealed Pressure Ulcer (1 or more/Stage 1 or >)-Discharge: 0. No # Stage 1 Pressure Ulcers-Discharge: 0 # Stage 2 Pressure Ulcers-Discharge: 0 # of These Stage 2 Pressure Ulcers Present on Admission: 0 # Stage 3 Pressure Ulcers-Discharge: 0 # of These Stage 3 Pressure Ulcers Present on Admission: 0 # Stage 4 Pressure Ulcers-Discharge: 0 # of These Stage 4 Pressure Ulcers Present on Admission: 0 # Unstageable Pressure Ulcers (Non-remove Dress)-Discharge: 0 # These Unstageable Pressure Ulcers (NRD)-Present on Admit: 0 # Unstageable Pressure Ulcers (Slough/Eschar)-Discharge: 0 # These Unstageable Pressure Ulcers(Slough) Present on Admit: 0 # Unstageable Pressure Ulcers (Deep Tissue Injury)-Discharge: 0 # These Unstageable Pressure Ulcers (DTI) Present on Admit: 0
[2018-01-25] MEDS: ACETAMINOPHEN 500 MG TAB PO SCH (06:11)
[2018-01-25] MEDS: traMADol 50 MG TAB PO PRN (06:14)
[2018-01-25 06:24] VITALS: BP 135/79
[2018-01-25] MEDS: ENOXAPARIN 40 MG/0.4 ML SYR SC SCH (08:12)
[2018-01-25] MEDS: METOPROLOL TARTRATE 25 MG TAB PO SCH (08:12)
[2018-01-25] MEDS: NICOTINE 7 MG/24 HR PATCH TD SCH (08:12)
[2018-01-25] MEDS: CHOLECALCIFEROL VIT D3 2,000 UNITS TAB/CAP PO SCH (08:13)
[2018-01-25] MEDS: METHOCARBAMOL 750 MG TAB PO PRN (08:16)
[2018-01-25] MEDS: AQUAPHOR OINTMENT 3.5 OZ JAR TP SCH (08:19)
[2018-01-25] MEDS: POLYETHYLENE GLYCOL 3350 17 GM PKT PO SCH (08:19)
--- NOTE | 2018-01-25 16:49 | GDS ---
ADMISSION DIAGNOSIS: Left acetabular and multiple pelvic fractures with nonweightbearing status on the left lower extremity. DISCHARGE DIAGNOSIS: Left acetabular and multiple pelvic fractures with nonweightbearing status on the left lower extremity. OTHER DISCHARGE DIAGNOSES: 1. Fluid collection under pelvic incision. 2. Anemia and thrombocytosis. 3. Hospital delirium and alcohol withdrawal. 4. Alcohol use disorder. 5. Osteoporosis. 6. Tachycardia. 7. Right lower lobe lung nodule measuring 1 cm. COMPLICATIONS: He had a fluid collection under his pelvic incision. CONSULTATIONS: He was seen by Interventional Radiology who placed drains in the fluid collection. PROCEDURES: Placement of the drains. HISTORY AND HOSPITAL COURSE: This patient was admitted from [facility]. He had initially been admitted to [facility] with mental status changes. He had been found unconscious on his couch by his roommates. He was found to be in alcohol withdrawal. During his hospital stay he was noted to have abnormality to the left hip and imaging showed a left acetabular fracture. He was transferred to [facility] in [place] where he underwent a complex surgery with ORIF of the left acetabulum and a left sacroiliac screw. He also had a lumbopelvic fixation done. En route from one hospital to the other he had vomiting and aspiration and required intubation for respiratory failure. He had septic shock. Other hospital complications included acute kidney injury, anemia, hyponatremia, hypokalemia, and sinus tachycardia. He was medically stabilized and ready for inpatient rehabilitation. He did well in rehabilitation. His initial functional independence measure was 90 on 01/15/2018, which is consistent with assisted living level of care. He advanced to 97 as of 01/22/2018, which is still in the range of assisted living level of function but close to independent function. He was independent with bed mobility, with a squat pivot transfer and for sit to stand using a front- wheeled walker. He was able to ambulate 40-50 feet with a front-wheeled walker or crutches with contact guard to minimal assist. Mobility was limited by endurance as well as right foot pain. He was able to climb and descend 3 stairs with the crutches and minimal assist. He was advanced to independent in his room during the day with a front-wheeled walker. For activities of daily living he required only setup. He did grooming and hygiene seated. He was tachycardic often throughout his hospitalization. He developed much faster tachycardia the day before discharge. Chest CT ruled out pulmonary embolus. He also had Doppler ultrasounds of both legs and there were no DVTs. There were incidental findings of bilateral patchy ground-glass opacities consistent with a possible atypical infection or pneumonia, compression fractures of T4 and mild loss of height at T2 to T7, and a right lower lobe 1 cm nodule. During his rehabilitation stay, he developed a fluid collection under the pelvic incision and he appeared to have cellulitis along the incision. He was treated with antibiotics for the cellulitis. He had ultrasound drainage of the fluid collection. Fluid was sent for culture and it was sterile. The fluid reaccumulated and he returned to Interventional Radiology and had drains placed on 01/16/2018. Drain output progressively declined but remained above 10 cc per day for 2 consecutive days from each drain, so he had not met criteria for drain removal. However, the more superficial drain fell out on 01/23/2018. Subsequently, he had increased drainage from the deeper drain, but this was improving as well. On the day of discharge, the remaining drain accidentally came out. The output from this drain in the previous 24 hours had been 45 cc. Symptoms of cellulitis along the pelvic incision completely resolved and antibiotics were discontinued on 01/18/2018. Dufur in the incision were discontinued on 01/16/2018. He had reactive thrombocytosis. He also had elevated inflammatory markers, including ferritin, ESR and CRP. During his stay platelet count improved from 833 on 01/12/2018 to 502 on 01/12/2018. His blood counts improved from a hemoglobin of 8.3 and hematocrit of 26.8 on 01/12/2018 to a hemoglobin of 10.9 and hematocrit of 34.7 on 01/22/2018. Ferritin had been 933 and CRP at 80.6 on 01/12/2018. Cognitively, he had a complete recovery from his hospital delirium and alcohol withdrawal. He had met all speech therapy goals as of 01/22/2018. Regarding pain management, he initially required long-acting morphine at bedtime and oxycodone during the day. His pain improved. He continued tramadol. On the day before discharge he used 3 doses of tramadol at 100 mg each dose. Regarding history of alcohol abuse and dependence, he showed no signs or symptoms of cirrhosis. His liver functions were overall within normal limits. Regarding deep venous thrombosis risk, he was maintained on enoxaparin 40 mg subcutaneous daily. This should continue at least 5 weeks since his surgery, which would go through 02/01/2018. He was discharged with a prescription for enoxaparin to cover that period of time. Should he continue to have significantly decreased mobility, advise consider extending his pharmacologic anticoagulation. DISCHARGE PLAN: Condition upon discharge is good. Discharge disposition: He is returning to his father's home in [facility]. DIET: Regular. ACTIVITY: Ad carlos. MEDICATIONS UPON DISCHARGE: 1. Acetaminophen 650 mg p.o. q.4 hours p.r.n. 2. Bisacodyl suppository 10 mg AK daily p.r.n. 3. Cholecalciferol 2000 units p.o. daily. 4. Enoxaparin 40 mg subcutaneous daily for 14 more days, starting 01/26/2018. 5. Methocarbamol 750 mg p.o. q.8 hours p.r.n. 6. Metoprolol 12.5 mg p.o. twice daily. 7. Aquaphor ointment to dry skin p.r.n. 8. Nicotine patch 7 mg transdermal daily. 9. Polyethylene glycol 17 g p.o. daily. 10. Senna/docusate 1 tab p.o. twice daily. 11. Tramadol 50-100 mg p.o. q.6 hours p.r.n. ISSUES TO BE ADDRESSED AT FOLLOW UP: 1. Mobility, functional status and weightbearing status. Followup will be arranged with Orthopedic Surgery in [place] . He is advised to resume physical therapy once his weightbearing status is advanced. It is anticipated that he will have up to 12 weeks of nonweightbearing. 2. Tachycardia. There was no DVT. Inflammatory markers have been improving. He should continue metoprolol. Heart rate on the day of discharge was 95. He can follow up with his primary care provider. 3. Fluid collection under the pelvic incision. Drain was accidentally removed prematurely. Observe for symptoms of reaccumulation of fluid. 4. Anemia and thrombocytosis have been improving. He should have a CBC checked on an as needed basis. 5. Likely osteoporosis with significant fractures from a ground level fall, as well as vertebral compression fractures. He was found to have a low vitamin D level and he should continue vitamin D replacement. He is advised to have bone density scanning and consider treatment for osteoporosis. 6. History of alcohol abuse and dependence with no signs or symptoms of cirrhosis. He is advised to have treatment for his substance use disorder. 7. Incidental findings on chest CT of 1 cm right lower lobe pulmonary nodule and of ground-glass opacities. Consider repeat chest CT in 6 months regarding the pulmonary nodule. Would follow clinically regarding the ground-glass opacities as these just may be signs of resolving pneumonia that he had during his hospitalization. Greater than 30 min were spent on this discharge including medication reconciliation, coordination of care, and counseling patient and his father. Copy requested to: [facility] /[id number]/MODL [id number]
== END 2018-01-25 11:56 | disposition home health service (06) | DRG 560 ==
LOC: BREH 14:32
PROVIDERS: ADMIT Internal Medicine; ATTEND Internal Medicine
PROC: F08Z0ZZ Bathing/Showering Techniques Treatment (ICD-10-PCS; principal; 2018-01-11)
PROC: F08Z2ZZ Grooming/Personal Hygiene Treatment (ICD-10-PCS; principal; 2018-01-11)
PROC: F08Z1ZZ Dressing Techniques Treatment (ICD-10-PCS; principal; 2018-01-11)
PROC: F07Z5ZZ Bed Mobility Treatment (ICD-10-PCS; principal; 2018-01-11)
PROC: F07Z8ZZ Transfer Training Treatment (ICD-10-PCS; principal; 2018-01-11)
PROC: F07Z9ZZ Gait Training/Functional Ambulation Treatment (ICD-10-PCS; principal; 2018-01-11)
PROC: 0H97XZX Drainage of Abdomen Skin, External Approach, Diagnostic (ICD-10-PCS; 2018-01-12)
DX: S32.402D Unspecified fracture of left acetabulum, subsequent encounter for fracture with routine healing (principal); S32.050D Wedge compression fracture of fifth lumbar vertebra, subsequent encounter for fracture with routine healing; W01.0XXD Fall on same level from slipping, tripping and stumbling without subsequent striking against object, subsequent encounter; F10.20 Alcohol dependence, uncomplicated; F17.200 Nicotine dependence, unspecified, uncomplicated; D64.9 Anemia, unspecified; R00.0 Tachycardia, unspecified; K59.03 Drug induced constipation; T50.7X5A Adverse effect of analeptics and opioid receptor antagonists, initial encounter; D47.3 Essential (hemorrhagic) thrombocythemia; R91.1 Solitary pulmonary nodule; Z91.81 History of falling; L03.311 Cellulitis of abdominal wall
CPT/HCPCS: 82565-PO; 92507-GN; 92523-GN; 97110-GO; 97110-GP; 97116-GP; 97140-GO; 97140-GP; 97162-GP; 97166-GO; 97530-GO; 97530-GP; 97535-GO; G0008; G0009; J0690; J1650; J3010; Q9967